=== PATIENT | male | born 1960 | race American Indian/Alaskan Native ===

== ENCOUNTER 2017-04-30 09:06 | Inpatient (IN) | payer MEDICARE ==
[2017-04-30] MEDS ORDERED: TORADOL IV ONE (10:00)
[2017-04-30 10:06] LABS: Hematocrit 34.3 % (35.5-45.6); Mean Corpuscular HGB Conc 32 % (32-34); Mean Corpuscular Hemoglobin 28 pg (28-32); Mean Corpuscular Volume 86 fl (84-94); Platelet Count 267 K/mm3 (140-440); Red Cell Distribution Width 17.3 % (13.2-15.2)
[2017-04-30 10:14] LABS: White Blood Count 20.5 K/mm3 (4.5-11.0)
[2017-04-30 10:21] LABS: Creatine Kinase MB 1.3 ng/mL (0.0-4.0)
[2017-04-30 10:21] LABS: INR 1.04 (0.87-1.13)
[2017-04-30 10:22] LABS: Alanine Aminotransferase 25 units/L (7-56); Albumin/Globulin Ratio 1.1 %; Alkaline Phosphatase 109 units/L (35-129); Anion Gap 19 mmol/L; BUN/Creatinine Ratio 10.71; Blood Urea Nitrogen 15 mg/dL (9-20); Calcium 9.1 mg/dL (8.4-10.2); Carbon Dioxide 23 mmol/L (22-30); Chloride 101.2 mmol/L (98-107); Glucose 120 mg/dL (75-100); Potassium 4.3 mmol/L (3.6-5.0); Sodium 139 mmol/L (137-145); Total Protein 7.5 g/dL (6.3-8.2)
--- NOTE | 2017-04-30 10:23 | XRay Report ---
CHEST ONE VIEW INDICATION: Dyspnea. COMPARISON: None similar at this institution. FINDINGS: Portable, single, frontal chest radiograph demonstrates normal cardiomediastinal silhouette. Clear lungs. Unremarkable bones. Extrinsic EKG leads. CONCLUSION: No acute disease in the chest. Thank you for the opportunity to participate in this patient's care.
[2017-04-30 11:18] LABS: Blastocytes % (Manual) 0 %
[2017-04-30 11:20] LABS: Basophils % (Manual) 0 % (0.0-1.8)
[2017-04-30 11:21] LABS: Anisocytosis 1+; Hypochromasia Few; Polychromasia Few
[2017-04-30 11:22] LABS: Diff Status Complete; Tear Drop Cells Rare
[2017-04-30] MEDS ORDERED: NACL ONE (11:33)
[2017-04-30 11:49] LABS: Urine Drugs of Abuse Note Disclamer
[2017-04-30 11:58] LABS: Bilirubin,Urine NEG (Negative); Blood,Urine NEG (Negative); Ketones,Urine NEG (Negative); Leukocyte Esterase,Urine NEG (Negative); Mucus,Urine FEW /HPF; Nitrite,Urine NEG (Negative); Protein,Urine <15 mg/dL mg/dL (Negative); Urobilinogen,Urine < 2.0 mg/dL (<2.0)
[2017-04-30] MEDS ORDERED: ZOFRAN IV ONE (12:11)
[2017-04-30] MEDS ORDERED: MORPHINE IV ONE (12:11)
[2017-04-30] MEDS ORDERED: NACL 0.9% 1000 ML 1,000 ML IV ONE (12:14)
--- NOTE | 2017-04-30 12:53 | Cat Scan Report ---
CTA CHEST INDICATION: Chest pain, shortness of breath. COMPARISON: None similar. FINDINGS: Chest CTA performed following intravenous administration of 100 cc of Omnipaque 350. Rotational MIP's also obtained. Normal heart size. Mild aortic arch calcifications. No aortic aneurysm or dissection. Suboptimal pulmonary arterial opacification and assessment without gross central suspicious filling defect, to the extent assessed. Patent central airway. No size significant adenopathy. Normal thyroid. Mild bilateral emphysematous changes superiorly. Nonspecific distal esophageal wall prominence/thickening, not excluded for gastroesophageal reflux and/or hiatal hernia, amongst others. Imaged upper abdomen demonstrates contracted gallbladder. Upper to mid thoracic vertebral body developmental/segmentation anomalies affecting up to approximately T6. Further inferior multilevel thoracic spine osteophytosis also seen. CONCLUSION: 1. Technically suboptimal CT assessment for pulmonary embolism, though without gross central abnormality, to the extent assessed, as described. 2. Other findings, including multilevel thoracic spine abnormalities, amongst others, as above. Thank you for the opportunity to participate in this patient's care.
--- NOTE | 2017-04-30 14:00 | Emergency Department Report ---
ED Shortness of Breath HPI - General Chief Complaint: Dyspnea/Respdistress Stated Complaint: BIENVENIDO Time Seen by Provider: 04/30/17 09:54 Source: EMS, old records reviewed (no previous record) Mode of arrival: Stretcher Limitations: No Limitations - History of Present Illness Initial Comments: 56-year-old male with a past medical history depression presents from [facility] with complaints of shortness of breath and chest pain. Patient was admitted to psychiatric Center on April 27 for major depressive disorder. Patient states his mother recently . Patient states he was admitted to [facility] for 11 days due to depression and he was transferred to [facility] when he has been for the last 2 days. Patient states his medications list provided by the psychiatric facility is incomplete and that he takes a lot more medication for his other medical conditions cholesterol, hypertension, and gout. He has not received his regular medication for the last 7 days. Patient was treated with Bactrim for recent urinary tract infection. EMS worker reports that bystanders on the scene thought that the patient had a seizure for about 2 minutes. Patient's complaint was "I am short of breath and everybody around here is sick and that he's been coughing up green mucus for the past 2 days. - Related Data Allergies Allergy/AdvReac Type Severity Reaction Status Date / Time chlorpromazine HCl Allergy Swelling Verified 04/30/17 09:27 [From Thorazine] ED Review of Systems ROS: Stated complaint: BIENVENIDO Other details as noted in HPI Comment: All other systems reviewed and negative Other: Constitutional: No fevers chills Eyes: No eye pain visual changes or discharge ENT: No ear pain or throat pain Neck: Denies pain Respiratory: As per HPI Cardiovascular: As per HPI GI: Denies abdominal pain, nausea, vomiting, diarrhea : Denies dysuria Musculoskeletal: Denies back pain Skin: Denies rash, lesions, erythema Neurologic: Denies headache, numbness, weakness Psychiatric: Denies suicidal ideation, hallucinations ED Past Medical Hx - Past Medical History Hx Psychiatric Treatment: Yes (depression) - Social History Smoking Status: Unknown if ever smoked ED Physical Exam - General Limitations: No Limitations - Other Other exam information: General: No limitations, patient is alert in no acute distress Head exam: Atraumatic, normocephalic Eyes exam: Normal appearance, pupils equal reactive to light, extraocular movements intact ENT: Moist mucous membrane, normal oropharynx Neck exam: Normal inspection, full range of motion, no meningismus nontender Respiratory exam: Clear to auscultation bilateral, no wheezes, rales, crackles Cardiovascular: Normal rate and rhythm, normal heart sounds. Reproducible lower left anterior chest wall tenderness Abdomen: Soft, nondistended, and nontender, with normal bowel sounds, no rebound, or guarding Extremity: Full range of motion normal inspection no deformity, no calf tenderness or edema Back: Normal Inspection, full range of motion, no tenderness Neurologic: Alert, oriented x3, cranial nerves intact, no motor or sensory deficit Psychiatric: normal affect, normal mood Skin: Warm, dry, intact ED Course Vital Signs 04/30/17 09:21 Temperature 98.5 F Pulse Rate 111 H Respiratory 18 Rate Blood Pressure 132/70 Blood Pressure 132/70 [Right] O2 Sat by Pulse 99 Oximetry - Reevaluation(s) Reevaluation #1: 04/30/17 14:04 Initially upon arrival and initial interview patient would only speak intermittently and he would impulsively pat people with his h ED Medical Decision Making - Lab Data Result diagrams: 04/30/17 09:54 04/30/17 09:54 Lab Results 04/30/17 04/30/17 04/30/17 Range/Units 09:54 09:54 09:57 WBC 20.5 H (4.5-11.0) K/mm3 RBC 4.00 (3.65-5.03) M/mm3 Hgb 11.0 L (11.8-15.2) gm/dl Hct 34.3 L (35.5-45.6) % MCV 86 (84-94) fl MCH 28 (28-32) pg MCHC 32 (32-34) % RDW 17.3 H (13.2-15.2) % Plt Count 267 (140-440) K/mm3 Add Manual Diff Complete Total Counted 100 Seg Neuts % (Manual) 79.0 H (40.0-70.0) % Band Neutrophils % 3.0 % Lymphocytes % (Manual) 5.0 L (13.4-35.0) % Reactive Lymphs % (Man) 0 % Monocytes % (Manual) 5.0 (0.0-7.3) % Eosinophils % (Manual) 1.0 (0.0-4.3) % Basophils % (Manual) 0 (0.0-1.8) % Metamyelocytes % 4.0 % Myelocytes % 3.0 % Promyelocytes % 0 % Blast Cells % 0 % Nucleated RBC % 1.0 H (0.0-0.9) % Seg Neutrophils # Man 16.2 H (1.8-7.7) K/mm3 Band Neutrophils # 0.6 K/mm3 Lymphocytes # (Manual) 1.0 L (1.2-5.4) K/mm3 Abs React Lymphs (Man) 0.0 K/mm3 Monocytes # (Manual) 1.0 H (0.0-0.8) K/mm3 Eosinophils # (Manual) 0.2 (0.0-0.4) K/mm3 Basophils # (Manual) 0.0 (0.0-0.1) K/mm3 Metamyelocytes # 0.8 K/mm3 Myelocytes # 0.6 K/mm3 Promyelocytes # 0.0 K/mm3 Blast Cells # 0.0 K/mm3 WBC Morphology Not Reportable Hypersegmented Neuts Not Reportable Hyposegmented Neuts Not Reportable Hypogranular Neuts Not Reportable Smudge Cells Not Reportable Toxic Granulation Not Reportable Toxic Vacuolation Not Reportable Dohle Bodies Not Reportable Pelger-Huet Anomaly Not Reportable Archana Rods Not Reportable Platelet Estimate Appears normal Clumped Platelets Not Reportable Plt Clumps, EDTA Not Reportable Large Platelets Not Reportable Giant Platelets Not Reportable Platelet Satelliting Not Reportable Plt Morphology Comment Not Reportable RBC Morphology Not Reportable Dimorphic RBCs Not Reportable Polychromasia Few Hypochromasia Few Poikilocytosis Not Reportable Anisocytosis 1+ Microcytosis Not Reportable Macrocytosis Not Reportable Spherocytes Not Reportable Pappenheimer Bodies Not Reportable Sickle Cells Not Reportable Target Cells Not Reportable Tear Drop Cells Rare Ovalocytes Not Reportable Helmet Cells Not Reportable Caceres-Rayville Bodies Not Reportable [place] Rings Not Reportable Pitman Cells Not Reportable Bite Cells Not Reportable Crenated Cell Not Reportable Elliptocytes Not Reportable Acanthocytes (Spur) Not Reportable Rouleaux Not Reportable Hemoglobin C Crystals Not Reportable Schistocytes Not Reportable Malaria parasites Not Reportable [place]roy Bodies Not Reportable Hem Pathologist Commnt Sent to pathology PT 13.5 (12.2-14.9) Sec. INR 1.04 (0.87-1.13) D-Dimer 492.71 H (0-234) ng/mlDDU VBG pH (7.320-7.420) Sodium 139 (137-145) mmol/L Potassium 4.3 (3.6-5.0) mmol/L Chloride 101.2 (98-107) mmol/L Carbon Dioxide 23 (22-30) mmol/L Anion Gap 19 mmol/L BUN 15 (9-20) mg/dL Creatinine 1.4 (0.8-1.5) mg/dL Estimated GFR > 60 ml/min BUN/Creatinine Ratio 10.71 % Glucose 120 H (75-100) mg/dL Lactic Acid (0.7-2.0) mmol/L Calcium 9.1 (8.4-10.2) mg/dL Total Bilirubin 0.20 (0.1-1.2) mg/dL AST 20 (5-40) units/L ALT 25 (7-56) units/L Alkaline Phosphatase 109 (35-129) units/L Total Creatine Kinase (55-170) units/L CK-MB (CK-2) (0.0-4.0) ng/mL CK-MB (CK-2) Rel Index (0-4) Troponin T (0.00-0.029) ng/mL NT-Pro-B Natriuret Pep (0-900) pg/mL Total Protein 7.5 (6.3-8.2) g/dL Albumin 4.0 (3.9-5) g/dL Albumin/Globulin Ratio 1.1 % Urine Color (Yellow) Urine Turbidity (Clear) Urine pH (5.0-7.0) Ur Specific [place] (1.003-1.030) Urine Protein (Negative) mg/dL Urine Glucose (UA) (Negative) mg/dL Urine Ketones (Negative) mg/dL Urine Blood (Negative) Urine Nitrite (Negative) Urine Bilirubin (Negative) Urine Urobilinogen (<2.0) mg/dL Ur Leukocyte Esterase (Negative) Urine WBC (Auto) (0.0-6.0) /HPF Urine RBC (Auto) (0.0-6.0) /HPF Urine Mucus /HPF Urine Opiates Screen Urine Methadone Screen Ur Barbiturates Screen Ur Phencyclidine Scrn Ur Amphetamines Screen U Benzodiazepines Scrn Urine Cocaine Screen U Marijuana (THC) Screen Drugs of Abuse Note 04/30/17 04/30/17 04/30/17 Range/Units 10:01 10:01 11:41 WBC (4.5-11.0) K/mm3 RBC (3.65-5.03) M/mm3 Hgb (11.8-15.2) gm/dl Hct (35.5-45.6) % MCV (84-94) fl MCH (28-32) pg MCHC (32-34) % RDW (13.2-15.2) % Plt Count (140-440) K/mm3 Add Manual Diff Total Counted Seg Neuts % (Manual) (40.0-70.0) % Band Neutrophils % % Lymphocytes % (Manual) (13.4-35.0) % Reactive Lymphs % (Man) % Monocytes % (Manual) (0.0-7.3) % Eosinophils % (Manual) (0.0-4.3) % Basophils % (Manual) (0.0-1.8) % Metamyelocytes % % Myelocytes % % Promyelocytes % % Blast Cells % % Nucleated RBC % (0.0-0.9) % Seg Neutrophils # Man (1.8-7.7) K/mm3 Band Neutrophils # K/mm3 Lymphocytes # (Manual) (1.2-5.4) K/mm3 Abs React Lymphs (Man) K/mm3 Monocytes # (Manual) (0.0-0.8) K/mm3 Eosinophils # (Manual) (0.0-0.4) K/mm3 Basophils # (Manual) (0.0-0.1) K/mm3 Metamyelocytes # K/mm3 Myelocytes # K/mm3 Promyelocytes # K/mm3 Blast Cells # K/mm3 WBC Morphology Hypersegmented Neuts Hyposegmented Neuts Hypogranular Neuts Smudge Cells Toxic Granulation Toxic Vacuolation Dohle Bodies Pelger-Huet Anomaly Archana Rods Platelet Estimate Clumped Platelets Plt Clumps, EDTA Large Platelets Giant Platelets Platelet Satelliting Plt Morphology Comment RBC Morphology Dimorphic RBCs Polychromasia Hypochromasia Poikilocytosis Anisocytosis Microcytosis Macrocytosis Spherocytes Pappenheimer Bodies Sickle Cells Target Cells Tear Drop Cells Ovalocytes Helmet Cells Caceres-[place] Bodies [place] Rings Pitman Cells Bite Cells Crenated Cell Elliptocytes Acanthocytes (Spur) Rouleaux Hemoglobin C Crystals Schistocytes Malaria parasites Elroy Bodies Hem Pathologist Commnt PT (12.2-14.9) Sec. INR (0.87-1.13) D-Dimer (0-234) ng/mlDDU VBG pH (7.320-7.420) Sodium (137-145) mmol/L Potassium (3.6-5.0) mmol/L Chloride (98-107) mmol/L Carbon Dioxide (22-30) mmol/L Anion Gap mmol/L BUN (9-20) mg/dL Creatinine (0.8-1.5) mg/dL Estimated GFR ml/min BUN/Creatinine Ratio % Glucose (75-100) mg/dL Lactic Acid (0.7-2.0) mmol/L Calcium (8.4-10.2) mg/dL Total Bilirubin (0.1-1.2) mg/dL AST (5-40) units/L ALT (7-56) units/L Alkaline Phosphatase (35-129) units/L Total Creatine Kinase 93 (55-170) units/L CK-MB (CK-2) 1.3 (0.0-4.0) ng/mL CK-MB (CK-2) Rel Index 1.3 (0-4) Troponin T < 0.010 (0.00-0.029) ng/mL NT-Pro-B Natriuret Pep 113.5 (0-900) pg/mL Total Protein (6.3-8.2) g/dL Albumin (3.9-5) g/dL Albumin/Globulin Ratio % Urine Color Yellow (Yellow) Urine Turbidity Clear (Clear) Urine pH 5.0 (5.0-7.0) Ur Specific [place] 1.013 (1.003-1.030) Urine Protein <15 mg/dl (Negative) mg/dL Urine Glucose (UA) Neg (Negative) mg/dL Urine Ketones Neg (Negative) mg/dL Urine Blood Neg (Negative) Urine Nitrite Neg (Negative) Urine Bilirubin Neg (Negative) Urine Urobilinogen < 2.0 (<2.0) mg/dL Ur Leukocyte Esterase Neg (Negative) Urine WBC (Auto) 2.0 (0.0-6.0) /HPF Urine RBC (Auto) 2.0 (0.0-6.0) /HPF Urine Mucus Few /HPF Urine Opiates Screen Urine Methadone Screen Ur Barbiturates Screen Ur Phencyclidine Scrn Ur Amphetamines Screen U Benzodiazepines Scrn Urine Cocaine Screen U Marijuana (THC) Screen Drugs of Abuse Note 04/30/17 04/30/17 04/30/17 Range/Units 11:41 12:39 12:39 WBC (4.5-11.0) K/mm3 RBC (3.65-5.03) M/mm3 Hgb (11.8-15.2) gm/dl Hct (35.5-45.6) % MCV (84-94) fl MCH (28-32) pg MCHC (32-34) % RDW (13.2-15.2) % Plt Count (140-440) K/mm3 Add Manual Diff Total Counted Seg Neuts % (Manual) (40.0-70.0) % Band Neutrophils % % Lymphocytes % (Manual) (13.4-35.0) % Reactive Lymphs % (Man) % Monocytes % (Manual) (0.0-7.3) % Eosinophils % (Manual) (0.0-4.3) % Basophils % (Manual) (0.0-1.8) % Metamyelocytes % % Myelocytes % % Promyelocytes % % Blast Cells % % Nucleated RBC % (0.0-0.9) % Seg Neutrophils # Man (1.8-7.7) K/mm3 Band Neutrophils # K/mm3 Lymphocytes # (Manual) (1.2-5.4) K/mm3 Abs React Lymphs (Man) K/mm3 Monocytes # (Manual) (0.0-0.8) K/mm3 Eosinophils # (Manual) (0.0-0.4) K/mm3 Basophils # (Manual) (0.0-0.1) K/mm3 Metamyelocytes # K/mm3 Myelocytes # K/mm3 Promyelocytes # K/mm3 Blast Cells # K/mm3 WBC Morphology Hypersegmented Neuts Hyposegmented Neuts Hypogranular Neuts Smudge Cells Toxic Granulation Toxic Vacuolation Dohle Bodies Pelger-Huet Anomaly Archana Rods Platelet Estimate Clumped Platelets Plt Clumps, EDTA Large Platelets Giant Platelets Platelet Satelliting Plt Morphology Comment RBC Morphology Dimorphic RBCs Polychromasia Hypochromasia Poikilocytosis Anisocytosis Microcytosis Macrocytosis Spherocytes Pappenheimer Bodies Sickle Cells Target Cells Tear Drop Cells Ovalocytes Helmet Cells Caceres-[place] Bodies [place] Rings Bertram Cells Bite Cells Crenated Cell Elliptocytes Acanthocytes (Spur) Rouleaux Hemoglobin C Crystals Schistocytes Malaria parasites Elroy Bodies Hem Pathologist Commnt PT (12.2-14.9) Sec. INR (0.87-1.13) D-Dimer (0-234) ng/mlDDU VBG pH 7.388 (7.320-7.420) Sodium (137-145) mmol/L Potassium (3.6-5.0) mmol/L Chloride (98-107) mmol/L Carbon Dioxide (22-30) mmol/L Anion Gap mmol/L BUN (9-20) mg/dL Creatinine (0.8-1.5) mg/dL Estimated GFR ml/min BUN/Creatinine Ratio % Glucose (75-100) mg/dL Lactic Acid 1.30 (0.7-2.0) mmol/L Calcium (8.4-10.2) mg/dL Total Bilirubin (0.1-1.2) mg/dL AST (5-40) units/L ALT (7-56) units/L Alkaline Phosphatase (35-129) units/L Total Creatine Kinase (55-170) units/L CK-MB (CK-2) (0.0-4.0) ng/mL CK-MB (CK-2) Rel Index (0-4) Troponin T (0.00-0.029) ng/mL NT-Pro-B Natriuret Pep (0-900) pg/mL Total Protein (6.3-8.2) g/dL Albumin (3.9-5) g/dL Albumin/Globulin Ratio % Urine Color (Yellow) Urine Turbidity (Clear) Urine pH (5.0-7.0) Ur Specific [place] (1.003-1.030) Urine Protein (Negative) mg/dL Urine Glucose (UA) (Negative) mg/dL Urine Ketones (Negative) mg/dL Urine Blood (Negative) Urine Nitrite (Negative) Urine Bilirubin (Negative) Urine Urobilinogen (<2.0) mg/dL Ur Leukocyte Esterase (Negative) Urine WBC (Auto) (0.0-6.0) /HPF Urine RBC (Auto) (0.0-6.0) /HPF Urine Mucus /HPF Urine Opiates Screen Presumptive negative Urine Methadone Screen Presumptive negative Ur Barbiturates Screen Presumptive negative Ur Phencyclidine Scrn Presumptive negative Ur Amphetamines Screen Presumptive negative U Benzodiazepines Scrn Presumptive negative Urine Cocaine Screen Presumptive negative U Marijuana (THC) Screen Presumptive negative Drugs of Abuse Note Disclamer - EKG Data -: EKG Interpreted by Me (nsr [id number], lat t wav inv) - EKG Data When compared to previous EKG there are: previous EKG unavailable - Radiology Data Radiology results: report reviewed Chest x-ray: No acute findings CT angiogram chest: Suboptimal, no gross sensory abnormality. Multi-level thoracic spine abnormalities. Mild bilateral emphysematous changes superiorly. Nonspecific distal esophageal wall prominence/thickening not excluded for GERD or hiatal hernia mild aortic arch calcifications no dissection or aneurysm - Medical Decision Making I decided to patient's pain is musculoskeletal. CT angiogram does not reveal a central PE. No signs of HI at this time. Patient has a significant leukocytosis with unknown origin. Blood cultures pending. Possible seizure prior to admission with no known history. Patient to be admitted to the hospitalist for further management - Differential Diagnosis mi, pe, costochondritis, pneumonia, bronchitis, new onset seizure Critical Care Time: No Critical care attestation.: If time is entered above; I have spent that time in minutes in the direct care of this critically ill patient, excluding procedure time. ED Disposition Clinical Impression: SOB (shortness of breath), Chest wall pain, Leukocytosis, Depression Disposition: OP ADMIT IP TO THIS HOSP Is pt being admited?: Yes Condition: Stable Time of Disposition: 14:27
--- NOTE | 2017-04-30 14:08 | Cat Scan Report ---
CT HEAD WITHOUT CONTRAST INDICATION: Seizure. COMPARISON: None similar. FINDINGS: Noncontrast head CT demonstrates normal ventricles and sulci without acute or recent infarct, hemorrhage, mass effect or midline shift. Mild to moderate periventricular and white matter hypodense small vessel ischemic disease. No abnormal extra-axial fluid collections. Posterior fossa structures and basilar cisterns appear within normal limits. Slightly hyperdense tentorium. Subtle MCA branch hyperdense appearance as well, more so on the right on axial series 2, images 22-31, nonspecific. Symmetric eye globes. Nasal septal deviation. Moderate ethmoid and mild maxillary and sphenoid sinusitis bilaterally. Clear imaged paranasal sinuses and mastoid air cells. Right external auditory canal debris may be directly visualized. Mild atherosclerotic ICA calcifications. Clear paranasal sinuses and mastoid air cells. Intact calvarium. Normal overlying scalp soft tissues. Few missing teeth. CONCLUSION: Findings, as above. If focal neurologic deficits or strong clinical suspicion for an acute infarction exist, additional assessment as with MRI may be considered, as appropriate. I phoned the above results to Dr. Nugent in the ER, 1:55 PM, 04/30/2017. Thank you for the opportunity to participate in this patient's care.
--- NOTE | 2017-04-30 14:18 | History and Physical Report ---
History of Present Illness Chief complaint: I have pain in my chest and its hard to breathe History of present illness: 56 YO Male with HTN, Depression, HLD, Gout presents to ED for evaluation. Pt states that he has experienced pain in his chest and shortness of breath for the past 2 days with worsening symptoms over the past 1 day. Pt currently is an inpatient at [facility] and states that he has not received his home medication for the past 7 days. Pt is unable to provide further detailed history, but history is taken from ED staff, EMS, and [facility] staff. Pt denies fever, chills, CP, Palpitations, NVD, productive cough, recent ill contacts. Past History Past Medical History: hypertension, hyperlipidemia Past Surgical History: No surgical history, Other (reviewed) Social history: single. denies: smoking, alcohol abuse, prescription drug abuse Family history: diabetes, hypertension Medications and Allergies Allergies Allergy/AdvReac Type Severity Reaction Status Date / Time chlorpromazine HCl Allergy Swelling Verified 04/30/17 09:27 [From Thorazine] Home Medications Medication Instructions Recorded Confirmed Last Taken Type AtorvaSTATin [Lipitor] 40 mg PO BID 04/30/17 04/30/17 Unknown History Carvedilol [Coreg] 25 mg PO BID 04/30/17 04/30/17 Unknown History Colchicine [Colcrys] 0.6 mg PO BID 04/30/17 04/30/17 Unknown History Tamsulosin [Flomax] 0.4 mg PO QDAY 04/30/17 04/30/17 Unknown History amLODIPine [Norvasc] 10 mg PO DAILY 04/30/17 04/30/17 Unknown History methOCARBAMOL [Robaxin TAB] 500 mg PO BID 04/30/17 04/30/17 Unknown History Review of Systems ROS unobtainable: due to mental status Exam - Constitutional Vitals: Temp Pulse Resp BP Pulse Ox 98.5 F 111 H 18 132/70 99 04/30/17 09:21 04/30/17 09:21 04/30/17 09:21 04/30/17 09:21 04/30/17 09:21 General appearance: Present: mild distress - EENT Eyes: Present: PERRL ENT: hearing intact, clear oral mucosa - Neck Neck: Present: supple, normal ROM - Respiratory Respiratory effort: normal Respiratory: bilateral: CTA - Cardiovascular Heart Sounds: Present: S1 & S2. Absent: rub, click - Extremities Extremities: pulses symmetrical, No edema Peripheral Pulses: within normal limits - Abdominal General gastrointestinal: Present: soft, non-tender, non-distended, normal bowel sounds Male genitourinary: Present: normal - Integumentary Integumentary: Present: clear, warm, dry - Musculoskeletal Musculoskeletal: gait normal, strength equal bilaterally - Psychiatric Psychiatric: appropriate mood/affect, intact judgment & insight - Neurologic Neurologic: CNII-XII intact, moves all extremities Results - Labs CBC & Chem 7: 04/30/17 14:56 04/30/17 14:56 Labs: Abnormal lab results 04/30/17 04/30/17 04/30/17 Range/Units 09:54 09:54 09:57 WBC 20.5 H (4.5-11.0) K/mm3 Hgb 11.0 L (11.8-15.2) gm/dl Hct 34.3 L (35.5-45.6) % RDW 17.3 H (13.2-15.2) % Seg Neuts % (Manual) 79.0 H (40.0-70.0) % Lymphocytes % (Manual) 5.0 L (13.4-35.0) % Nucleated RBC % 1.0 H (0.0-0.9) % Seg Neutrophils # Man 16.2 H (1.8-7.7) K/mm3 Lymphocytes # (Manual) 1.0 L (1.2-5.4) K/mm3 Monocytes # (Manual) 1.0 H (0.0-0.8) K/mm3 D-Dimer 492.71 H (0-234) ng/mlDDU Glucose 120 H (75-100) mg/dL Assessment and Plan - Patient Problems (1) Sepsis Current Visit: Yes Status: Acute Qualifiers: Sepsis type: S Plan to address problem: IV abx, IVF, supportive care, serial lactate level, repeat bmp, monitor uop q shift, blood cultures. (2) ACS (acute coronary syndrome) Current Visit: Yes Status: Acute Plan to address problem: Cardiology consulted, Serial cardiac enzymes, ekg, telemetry monitoring, supportive care, Echo, stress test (3) HTN (hypertension) Current Visit: Yes Status: Acute Qualifiers: Hypertension type: H Plan to address problem: Monitor bp q shift (4) Depression Current Visit: Yes Status: Acute Qualifiers: Depression Type: D Major depression recurrence: M Active/Remission status : A Major depression episode severity: M Psychotic features: P Trimester: T Plan to address problem: psych consulted, resume current therapy. (5) DVT prophylaxis Current Visit: Yes Status: Acute
[2017-04-30] MEDS ORDERED: MILK OF MAGNESIA PO PRN (14:22)
[2017-04-30] MEDS ORDERED: NACL 0.9% 1000 ML IV ONE (14:22)
[2017-04-30] MEDS ORDERED: ZOFRAN IV PRN (14:22)
[2017-04-30] MEDS ORDERED: TYLENOL PO PRN (14:22)
[2017-04-30] MEDS ORDERED: DULCOLAX PR PRN (14:22)
[2017-04-30] MEDS ORDERED: PROVENTIL IH PRN (14:22)
[2017-04-30] MEDS ORDERED: SODIUM CHLORIDE FLUSH SYRINGE 10 ML IV PRN (14:27)
--- NOTE | 2017-04-30 14:41 | Admit Criteria Form ---
Admission Criteria Documentation: SEPSIS and OTHER FEBRILE ILLNESS, W/O FOCAL INFECTION Clinical Indications for Admission to Inpatient Care ( Place 'X' for any and all applicable criteria): Admission is indicated for ANY ONE of the following (1)(2)(3)(4): [X] I. Bacteremia [ ]II. Suspected or identified specific infection requiring hospitalization (eg, meningitis, endocarditis) [ ]III. Hemodynamic instability [ ]IV. Altered mental status [ ]V. Failure or unavailability of outpatient antimicrobial treatment [ ]. Hypoxemia [ ]VII. Seizures [ ]VIII. High-risk febrile neutropenia [ ]IX. Need for parenteral antibiotic in patient who is likely to abuse vascular access device (eg, injection drug user) [A](7) [ ]X. Temperature greater than 104.9 degrees F (40.5 degrees C) (oral) [ ]XI. Inpatient admission required rather than observation care because of ANY ONE of the following: [ ]1) Specific infection identified that is too severe for outpatient treatment or observation care trial [ ]2) Metabolic disorder (eg, hypoglycemia, hyperglycemia, metabolic acidosis) that is severe or persistent [ ]3) Temperature greater than 103.1 degrees F (39.5 degrees C) ( oral) that is not responsive to observation care treatment [ ]4) IV fluid to replace significant ongoing (eg, for over 24 hours) losses (> 3 L/m2 per day) [ ]5) Supplemental oxygen or respiratory treatments for over 24 hours that is performable only in acute inpatient setting [ ]6) Parenteral nutrition regimen need that must be implemented on inpatient basis [ ]7) Strict or protective (eg, laminar flow) isolation [ ]8) Other condition, treatment or monitoring requiring inpatient admission Extended stay beyond goal length of stay may be needed for(1)(3) [ ]a) Sepsis or septic shock(22) [ ]b) Positive blood cultures [ ]c) Insufficient oral intake [ ]d) High-risk febrile neutropenia(29)(30) [ ]e) Continued fever and clinical instability [ ]f) Clinically active comorbid illness (e.g,heart failure, renal failure , diabetes) The original [facility] [employer] content created by Deborah Leon has been revised. The portions of the content which have been revised are identified through the use of italic text or in bold, and Deborah Leon has neither reviewed nor approved the modified material. All other unmodified content is copyright [facility]. Please see references footnoted in the original [facility] edition 2016 Admission Criteria Met: Yes
[2017-04-30 15:15] LABS: Hematocrit 34.4 % (35.5-45.6); Hemoglobin 10.9 gm/dl (11.8-15.2); Mean Corpuscular HGB Conc 32 % (32-34); Mean Corpuscular Hemoglobin 27 pg (28-32); Mean Corpuscular Volume 86 fl (84-94); Platelet Count 280 K/mm3 (140-440); Red Blood Count 3.99 M/mm3 (3.65-5.03); Red Cell Distribution Width 17.5 % (13.2-15.2); White Blood Count 19.9 K/mm3 (4.5-11.0)
[2017-04-30 15:34] LABS: Eosinophils % (Auto) 1.4 % (0.0-4.3)
[2017-04-30 15:35] LABS: Anion Gap 21 mmol/L; BUN/Creatinine Ratio 12.14; Blood Urea Nitrogen 17 mg/dL (9-20); Calcium 8.9 mg/dL (8.4-10.2); Carbon Dioxide 21 mmol/L (22-30); Chloride 101.3 mmol/L (98-107); Cholesterol 185 mg/dL (50-199); Glucose 92 mg/dL (75-100); HDL Cholesterol 15 mg/dL (40-59); LDL Cholesterol,Direct TNR mg/dL (50-130); Potassium 4.2 mmol/L (3.6-5.0); Sodium 139 mmol/L (137-145); Triglycerides 565 mg/dL (2-149)
[2017-04-30 17:14] LABS: Blastocytes % (Manual) 0 %
[2017-04-30 17:15] LABS: Anisocytosis 1+
[2017-04-30 17:16] LABS: Platelet Estimate Consistent w Auto; Polychromasia Few; Tear Drop Cells Few
[2017-04-30 17:17] LABS: Diff Status Complete
[2017-04-30] MEDS: NACL 0.45% 1000 ML 1,000 ML IV SCH (17:54)
[2017-04-30] MEDS: PEPCID PO SCH (21:24)
[2017-04-30] MEDS ORDERED: ROBITUSSIN PO PRN (22:57)
[2017-04-30] MEDS ORDERED: MORPHINE IV PRN (22:58)
[2017-04-30] MEDS: COLCRYS PO SCH (23:32)
[2017-05-01] MEDS: NACL 0.45% 1000 ML 1,000 ML IV SCH (03:00)
[2017-05-01 08:06] VITALS: BP 167/72
[2017-05-01] MEDS: PEPCID PO SCH (10:44)
[2017-05-01] MEDS: COLCRYS PO SCH (10:44)
--- NOTE | 2017-05-01 11:01 | Discharge Summary ---
Providers - Providers Date of Admission: 04/30/17 14:22 Attending physician: ADAM SHANKAR 04/30/17 14:27 Consult to Cardiology [CONS] Routine Consulting Provider: BRIAN HERR Reason For Exam: acs 04/30/17 16:34 psychiatry consult [Consult to Mental Health] [CONS] Routine Reason For Exam: depression Place consult to:: psych Notified:: ANMOL Phone number called:: [phone] Was contact made?: Yes If yes, spoke with:: ANMOL Time called:: 17:11 Primary care physician: MEDICAL IMAGING TECHNICIAN Hospitalization Condition: Stable Hospital course: Patient admitted for cp, sob and left AMA. Patient was counseled and educated prior to leaving AMA. Patient still refuses all test and left AMA. He denies any suicidal or homicidal ideations. Discharge diagnosis: -Chest pain, most likely GERD related, please see CTA chest report, (read entire report) 05/01/17 10:37 - Nurse Note by LUCI ARANGO Acct Num: [id number] : 1960 Patient Age: 56 Patient Left ON AMA Refused Electrocardiogram,stress test and schedule medication Removed teletypesetter monitor hospital security called they responded patient still Refused to stay DR Shankar Notified states okay if patient signs AMA Form INT removed dry dressing applied charged nurse aware patient left at 1035. Initialized on 05/01/17 10:37 - END OF NOTE Disposition: DC-07 LEFT AGAINST MED ADVICE Time spent for discharge: 33 min Core Measure Documentation - Palliative Care Palliative Care/ Comfort Measures: Not Applicable - Core Measures Any of the following diagnoses?: none - VTE Discharge Requirements Deep Vein Thrombosis/Pulmonary Embolism Present on Admission: No Has pt received <5 days of overlap therapy or INR<2.0: No Anticoagulant overlap therapy prescribed at discharge: No Contraindication No Overlap Therapy order at DC: Not Indicated Exam - Physical Exam Narrative exam: GEN: WDWN, NAD, AWAKE, ALERT, ORIENTATED x 3 HEENT: NCAT, PERRL, EOMI, OP CLEAR NECK: SUPPLE, NO THYROMEGALY, NO JVD, NO LAD CVS: RRR, NORMAL S1S2 LUNGS/CHEST: CTA B, NORMAL CHEST EXPANSION B, adequate AIR ENTRY B ABD: SOFT, NTND, GBS, NO REBOUND OR GUARDING EXT/SKIN: NO SIGNIFICANT EDEMA OR RASH MSK: FROM X 4 EXTREMITIES NEURO: CN 2-12 GROSSLY INTACT, NO FOCAL DEFICITS PSY: Poor insight and judgment - Constitutional Vitals: Temp Pulse Resp BP Pulse Ox 97.9 F 69 20 167/72 98 05/01/17 07:45 05/01/17 07:45 05/01/17 07:45 05/01/17 07:45 05/01/17 07:45 Plan Activity: no driving until cleared by PCP, other (no strenous activites until cleared by PCP. ) Diet: low salt Follow up with: PRIMARY CARE, [Primary Care Provider] - 3-5 Days
--- NOTE | 2017-05-06 10:50 | Query- Present on Admission ---
Marquis Bueno___Raad Date:____05/06/2017 Swimming Pool Salesperson/CDS:__Gavino Phone#:___[phone] Exercise your independent professional judgment when responding to this query. Questions asked do not imply a particular answer is desired or expected. We greatly appreciate your clarification on this issue. Clinical Documentation States: 56 Year old male was admitted on 04/30/2017. The Discharge summary states "I wanted to keep patient but he doesn't want to stay. Leukocytosis and HR qualifies for SIRS without source of infection, poa, d /w patient prior to leaving AMA that he needs to be worked up, pt states, "this is the worse hospital ever, I ain't staying here." Blood cultures pending." The IM H&P note states "Assessment and Plan - Patient Problems (1) Sepsis Current Visit: Yes Status: Acute Qualifiers: Sepsis type: S Plan to address problem: IV abx, IVF, supportive care, serial lactate level, repeat bmp, monitor uop q shift, blood cultures. Based on the above clinical scenario and your knowledge of the patient's case please clarify if the diagnosis stated below was present on admission: Diagnosis: ___Sepsis [ ] Sepsis Ruled In [ ] Sepsis Ruled Out [x ] Other (Please Specify):___He did have SIRS not sepsis [x ] Clinically Undetermined because he left AMA Present on admission : [ ] Yes (Y) [x] Clinically undeterminable(W) [ ] No (N) Please also document response in your Progress Notes and/or Discharge Summary and indicate if the condition was present on admission. JAVIER
== END 2017-05-01 10:40 | disposition left against medical advice (07) | DRG 311 ==
LOC: ED 09:06 → 3A 14:22
PROVIDERS: ADMIT Internal Medicine; ATTEND Internal Medicine
DX: I24.9 Acute ischemic heart disease, unspecified (principal); R65.10 Systemic inflammatory response syndrome (SIRS) of non-infectious origin without acute organ dysfunction; F32.9 Major depressive disorder, single episode, unspecified; I10 Essential (primary) hypertension; K21.9 Gastro-esophageal reflux disease without esophagitis; M10.9 Gout, unspecified; D72.829 Elevated white blood cell count, unspecified; E78.5 Hyperlipidemia, unspecified; Z87.440 Personal history of urinary (tract) infections; Z82.49 Family history of ischemic heart disease and other diseases of the circulatory system; Z83.3 Family history of diabetes mellitus
CPT/HCPCS: 36415; 70450; 71010; 71020; 71275; 80048; 80053; 80061; 80307; 81001; 82140; 82550; 82553; 82805; 83880; 84484; 85007; 85025; 85379; 85610; 86850; 86900; 86901; 87040; 93005; 93010; 96374; 96375; 99285; J1885; J2270; J2405; J7030; Q9967

== ENCOUNTER 2017-05-06 19:28 | Emergency (ER) | payer MEDICARE ==
[2017-05-06 21:20] VITALS: BP 173/89
--- NOTE | 2017-05-06 23:47 | Emergency Department Report ---
ED Medical Clearance HPI - General Chief complaint: Extremity Injury, Lower Stated complaint: WEAKNESS Source: patient, EMS Mode of arrival: Ambulatory Limitations: No Limitations - History of Present Illness Initial comments: 56 year old male presents to ED with no complaint. patient states he was sent here by the [facility] term for medical clearance. patient states the nurse sent him to the ED because he was sleep and then woke up and states his foot fell asleep and he tripped but did not fall. patient is stable, neurologically intact and in no acute distress. patient denies pain. patient has normal gait, normal strength in all 4 extremeties and intact bilateral radial pulses and intact bilateral pedal pulses. patient is alert and oriented to person, place, time and self. patient also states that he walked here to the ED from the long term. MD Complaint: medical clearance request -: Sudden Reason for Medical Clearance: other (sent from long term) Alledged Intoxication: No Traumatic Symptoms: denies traumatic injury Associated Symptoms: denies other symptoms. denies: chest pain, shortness of breath, palpitations, diaphoresis, confusion, cough, fever/chills, headaches, anorexia, malaise, nausea/vomiting, rash, seizure, syncope, weakness Treatments Prior to Arrival: none Home medications: Home Medications Medication Instructions Recorded Confirmed Last Taken AtorvaSTATin [Lipitor] 40 mg PO BID 04/30/17 04/30/17 Unknown Carvedilol [Coreg] 25 mg PO BID 04/30/17 04/30/17 Unknown Colchicine [Colcrys] 0.6 mg PO BID 04/30/17 04/30/17 Unknown Tamsulosin [Flomax] 0.4 mg PO QDAY 04/30/17 04/30/17 Unknown amLODIPine [Norvasc] 10 mg PO DAILY 04/30/17 04/30/17 Unknown methOCARBAMOL [Robaxin TAB] 500 mg PO BID 04/30/17 04/30/17 Unknown Allergies/Adverse reactions: Allergies Allergy/AdvReac Type Severity Reaction Status Date / Time chlorpromazine HCl Allergy Swelling Verified 04/30/17 09:27 [From Thorazine] ED Review of Systems ROS: Stated complaint: WEAKNESS Other details as noted in HPI Constitutional: denies: chills, diaphoresis, fever, malaise, weakness Eyes: denies: eye pain, eye discharge, vision change ENT: denies: ear pain, throat pain Respiratory: denies: cough, shortness of breath, wheezing Cardiovascular: denies: chest pain, palpitations Endocrine: no symptoms reported Gastrointestinal: denies: abdominal pain, nausea, diarrhea Genitourinary: denies: urgency, dysuria Musculoskeletal: denies: back pain, joint swelling, arthralgia Skin: denies: rash, lesions Neurological: denies: headache, weakness, numbness, paresthesias, confusion, abnormal gait, vertigo Psychiatric: denies: anxiety, depression, suicidal thoughts Hematological/Lymphatic: denies: easy bleeding, easy bruising ED Past Medical Hx - Past Medical History Previous Medical History?: Yes Hx Hypertension: Yes Hx Congestive Heart Failure: No Hx Diabetes: No Hx Psychiatric Treatment: Yes (depression) Hx Asthma: No Hx COPD: No - Surgical History Past Surgical History?: No - Social History Smoking Status: Current Every Day Smoker Substance Use Type: None - Medications Home Medications: Home Medications Medication Instructions Recorded Confirmed Last Taken Type AtorvaSTATin [Lipitor] 40 mg PO BID 04/30/17 04/30/17 Unknown History Carvedilol [Coreg] 25 mg PO BID 04/30/17 04/30/17 Unknown History Colchicine [Colcrys] 0.6 mg PO BID 04/30/17 04/30/17 Unknown History Tamsulosin [Flomax] 0.4 mg PO QDAY 04/30/17 04/30/17 Unknown History amLODIPine [Norvasc] 10 mg PO DAILY 04/30/17 04/30/17 Unknown History methOCARBAMOL [Robaxin TAB] 500 mg PO BID 04/30/17 04/30/17 Unknown History ED Physical Exam - General Limitations: No Limitations General appearance: alert, in no apparent distress - Head Head exam: Present: atraumatic, normocephalic - Eye Eye exam: Present: normal appearance, EOMI - ENT ENT exam: Present: mucous membranes moist - Neck Neck exam: Present: normal inspection, full ROM. Absent: tenderness - Respiratory Respiratory exam: Present: normal lung sounds bilaterally. Absent: respiratory distress, wheezes, chest wall tenderness, decreased breath sounds - Cardiovascular Cardiovascular Exam: Present: regular rate, normal rhythm, normal heart sounds. Absent: systolic murmur, diastolic murmur, rubs, gallop - GI/Abdominal GI/Abdominal exam: Present: soft, normal bowel sounds. Absent: distended, tenderness - Rectal Rectal exam: Present: deferred - Extremities Exam Extremities exam: Present: normal inspection, full ROM. Absent: tenderness - Back Exam Back exam: Present: normal inspection, full ROM. Absent: tenderness - Neurological Exam Neurological exam: Present: alert, oriented X3, normal gait, reflexes normal. Absent: altered, abnormal gait - Psychiatric Psychiatric exam: Present: normal affect, normal mood. Absent: depressed, suicidal ideation - Skin Skin exam: Present: warm, dry, intact, normal color. Absent: rash ED Course Vital Signs 05/06/17 21:15 Temperature 98.3 F Pulse Rate 89 Respiratory 18 Rate Blood Pressure 173/89 O2 Sat by Pulse 98 Oximetry ED Medical Decision Making - Medical Decision Making 56 year old male presents to ED for medical clearance. patient was sent to ED by long term for waking up and tripping over his own feet but no actual fall. patient denies LOC, trauma to head, pain, weakness. patient is stable, neurologically intact and in no acute distress. patient has normal physical exam with no acute findings. ED Disposition Clinical Impression: General medical exam Disposition: DC-01 TO HOME OR SELFCARE Is pt being admited?: No Does the pt Need Aspirin: No Condition: Stable Referrals: PRIMARY CARE, [Primary Care Provider] - 3-5 Days
== END 2017-05-06 23:55 | disposition home or self-care (01) ==
LOC: ED 19:28
DX: Z00.8 Encounter for other general examination (principal); I10 Essential (primary) hypertension; F32.9 Major depressive disorder, single episode, unspecified; F17.200 Nicotine dependence, unspecified, uncomplicated; Z88.8 Allergy status to other drugs, medicaments and biological substances
CPT/HCPCS: 99283

== ENCOUNTER 2017-09-04 15:00 | Inpatient (IN) | payer MEDICARE ==
[2017-09-04 17:10] LABS: Hematocrit 31.7 % (35.5-45.6); Hemoglobin 10.2 gm/dl (11.8-15.2); Mean Corpuscular HGB Conc 32 % (32-34); Mean Corpuscular Hemoglobin 27 pg (28-32); Mean Corpuscular Volume 84 fl (84-94); Platelet Count 340 K/mm3 (140-440); Red Blood Count 3.79 M/mm3 (3.65-5.03); Red Cell Distribution Width 16.6 % (13.2-15.2); White Blood Count 16.9 K/mm3 (4.5-11.0)
[2017-09-04] MEDS ORDERED: LEVAQUIN 750MG/150ML 750 MG/150 ML BAG IV ONE (17:27)
--- NOTE | 2017-09-04 17:32 | Emergency Department Report ---
ED Shortness of Breath HPI - General Chief Complaint: Dyspnea/Respdistress Stated Complaint: ABNORMAL EKG Time Seen by Provider: 09/04/17 17:23 Source: EMS Mode of arrival: Stretcher Limitations: No Limitations - History of Present Illness Initial Comments: Patient is 56 years old male who was sent from an care for evaluation of an abnormal EKG and shortness of breath and chest pain as being going on for 2 days. Patient describes his chest pain as bilateral on both right and left aching in nature associated with shortness of breath and cough. Patient stated that he feels like he has pneumonia. He denied fever but he admitted chills. No other complaint at this moment. MD Complaint: shortness of breath, cough, chest pain -: days(s) Severity: moderate Pain Scale: 4 Quality: aching Consistency: constant Known History Of: congestive heart failure Associated Symptoms: chest pain - Related Data Home Medications Medication Instructions Recorded Confirmed Last Taken AtorvaSTATin [Lipitor] 40 mg PO BID 04/30/17 09/04/17 Unknown Carvedilol [Coreg] 25 mg PO BID 04/30/17 09/04/17 Unknown Colchicine [Colcrys] 0.6 mg PO BID 04/30/17 09/04/17 Unknown Tamsulosin [Flomax] 0.4 mg PO QDAY 04/30/17 09/04/17 Unknown amLODIPine [Norvasc] 10 mg PO DAILY 04/30/17 09/04/17 Unknown methOCARBAMOL [Robaxin TAB] 500 mg PO BID 04/30/17 09/04/17 Unknown Allergies Allergy/AdvReac Type Severity Reaction Status Date / Time chlorpromazine HCl Allergy Swelling Verified 04/30/17 09:27 [From Thorazine] haloperidol [From Haldol] Allergy Unknown Verified 09/04/17 16:37 lisinopril Allergy Unknown Verified 09/04/17 16:37 ED Review of Systems ROS: Stated complaint: ABNORMAL EKG Other details as noted in HPI Comment: All other systems reviewed and negative Constitutional: chills. denies: fever Respiratory: cough, shortness of breath, SOB at rest. denies: SOB with exertion Cardiovascular: chest pain Gastrointestinal: denies: abdominal pain, nausea, vomiting, hematemesis, melena , hematochezia Genitourinary: denies: urgency, dysuria, frequency, hematuria Musculoskeletal: denies: back pain Neurological: denies: headache, paresthesias ED Past Medical Hx - Past Medical History Previous Medical History?: Yes Hx Hypertension: Yes Hx Heart Attack/AMI: Yes Hx Congestive Heart Failure: No Hx Diabetes: No Hx Seizures: Yes Hx Psychiatric Treatment: Yes (depression) Hx Asthma: No Hx COPD: No Additional medical history: gout - Surgical History Past Surgical History?: Yes Additional Surgical History: multiple cardiac stents - Social History Smoking Status: Current Every Day Smoker Substance Use Type: Alcohol, Cocaine - Medications Home Medications: Home Medications Medication Instructions Recorded Confirmed Last Taken Type AtorvaSTATin [Lipitor] 40 mg PO BID 04/30/17 09/04/17 Unknown History Carvedilol [Coreg] 25 mg PO BID 04/30/17 09/04/17 Unknown History Colchicine [Colcrys] 0.6 mg PO BID 04/30/17 09/04/17 Unknown History Tamsulosin [Flomax] 0.4 mg PO QDAY 04/30/17 09/04/17 Unknown History amLODIPine [Norvasc] 10 mg PO DAILY 04/30/17 09/04/17 Unknown History methOCARBAMOL [Robaxin TAB] 500 mg PO BID 04/30/17 09/04/17 Unknown History ED Physical Exam - General Limitations: No Limitations General appearance: alert, in no apparent distress - Head Head exam: Present: normocephalic, normal inspection - Eye Eye exam: Present: normal appearance - ENT ENT exam: Present: normal exam, normal orophraynx - Neck Neck exam: Present: normal inspection, full ROM - Respiratory Respiratory exam: Present: normal lung sounds bilaterally, rales. Absent: respiratory distress, wheezes, rhonchi, stridor, accessory muscle use, decreased breath sounds, prolonged expiratory - Cardiovascular Cardiovascular Exam: Present: regular rate, normal rhythm, normal heart sounds - GI/Abdominal GI/Abdominal exam: Present: soft, normal bowel sounds. Absent: distended, tenderness, guarding, rebound, rigid, hyperactive bowel sounds, hypoactive bowel sounds, organomegaly, mass, bruit, pulsatile mass, hernia - Extremities Exam Extremities exam: Present: normal inspection, full ROM, normal capillary refill - Back Exam Back exam: Present: normal inspection. Absent: tenderness, CVA tenderness (R), CVA tenderness (L) - Neurological Exam Neurological exam: Present: alert, oriented X3, CN II-XII intact, normal gait - Psychiatric Psychiatric exam: Present: depressed - Skin Skin exam: Present: warm, intact, normal color ED Course Vital Signs 09/04/17 09/04/17 09/04/17 16:54 17:13 19:32 Temperature 97.8 F Pulse Rate 63 Respiratory 16 16 Rate Blood Pressure 131/67 Blood Pressure 153/79 [Left] O2 Sat by Pulse 100 100 97 Oximetry 09/04/17 09/04/17 09/04/17 20:01 20:31 21:00 Temperature Pulse Rate Respiratory Rate Blood Pressure 145/78 164/103 150/87 Blood Pressure [Left] O2 Sat by Pulse 96 92 94 Oximetry ED Medical Decision Making - Lab Data Result diagrams: 09/04/17 16:52 09/04/17 18:45 - EKG Data -: EKG Interpreted by Me EKG shows normal: sinus rhythm - EKG Data Interpretation: no acute changes - Radiology Data Radiology results: image reviewed Chest x-ray showed a right lower lobe infiltrate - Medical Decision Making Discussed with Dr. Morena Jewell, I presented the patient, she agreed to admit the patient to her service. Critical care attestation.: If time is entered above; I have spent that time in minutes in the direct care of this critically ill patient, excluding procedure time. ED Disposition Clinical Impression: Pneumonia, Shortness of breath Disposition: 09 OP ADMIT IP TO THIS HOSP Is pt being admited?: Yes Condition: Stable Instructions: Bacterial Pneumonia (ED)
[2017-09-04 17:42] LABS: Chloride TNR mmol/L (98-107); Potassium TNR mmol/L (3.6-5.0); Sodium TNR mmol/L (137-145)
[2017-09-04 17:43] LABS: Anion Gap TNR mmol/L; BUN/Creatinine Ratio TNR; Blood Urea Nitrogen TNR mg/dL (9-20); Calcium TNR mg/dL (8.4-10.2); Carbon Dioxide TNR mmol/L (22-30); Glucose TNR mg/dL (75-100)
[2017-09-04 18:00] LABS: Blastocytes % (Manual) 0 %
[2017-09-04 18:04] LABS: Anisocytosis 1+; Large Platelets Few; Platelet Estimate Consistent w Auto
[2017-09-04 18:05] LABS: Diff Status Complete
[2017-09-04 19:37] LABS: Anion Gap 21 mmol/L; BUN/Creatinine Ratio 14; Blood Urea Nitrogen 20 mg/dL (9-20); Calcium 8.6 mg/dL (8.4-10.2); Carbon Dioxide 23 mmol/L (22-30); Chloride 102.8 mmol/L (98-107); Glucose 127 mg/dL (75-100); Sodium 143 mmol/L (137-145)
[2017-09-04] MEDS ORDERED: ZOFRAN IV PRN (22:08)
[2017-09-04] MEDS ORDERED: MILK OF MAGNESIA PO PRN (22:08)
[2017-09-04] MEDS ORDERED: DULCOLAX PR PRN (22:08)
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
[2017-09-05 06:09] LABS: Hemoglobin 9.7 gm/dl (11.8-15.2); Mean Corpuscular HGB Conc 31 % (32-34); Mean Corpuscular Hemoglobin 26 pg (28-32); Mean Corpuscular Volume 84 fl (84-94); Platelet Count 270 K/mm3 (140-440); Red Cell Distribution Width 16.5 % (13.2-15.2); White Blood Count 16.3 K/mm3 (4.5-11.0)
[2017-09-05] MEDS: ZOSYN/NS 4.5GM/100ML 4.5 GM/100 ML VIAL IV SCH ×3 (06:23→22:42)
[2017-09-05 06:31] LABS: Anion Gap 19 mmol/L; BUN/Creatinine Ratio 15; Blood Urea Nitrogen 20 mg/dL (9-20); Calcium 8.4 mg/dL (8.4-10.2); Carbon Dioxide 24 mmol/L (22-30); Chloride 102.5 mmol/L (98-107); Glucose 129 mg/dL (75-100); Potassium 3.8 mmol/L (3.6-5.0); Sodium 142 mmol/L (137-145)
[2017-09-05 07:27] LABS: Anisocytosis 1+; Blastocytes % (Manual) 0 %; Hypochromasia Rare; Stomatocytes Few
[2017-09-05 07:28] LABS: Diff Status Complete; Tear Drop Cells Rare
--- NOTE | 2017-09-05 07:53 | XRay Report ---
PORTABLE CHEST INDICATION: Shortness of breath. COMPARISON: 04/30/2017 FINDINGS: Portable, frontal chest radiograph demonstrates stable cardiomediastinal silhouette and lungs with slightly prominent/crowded infrahilar markings. No pleural effusions or CHF. Stable bones. CONCLUSION: No significant acute chest process or interval change, as described. Thank you for the opportunity to participate in this patient's care.
[2017-09-05] MEDS: LEVAQUIN 750MG/150ML 750 MG/150 ML BAG IV SCH (11:17)
[2017-09-05] MEDS: LOVENOX SUB-Q SCH (11:18)
--- NOTE | 2017-09-05 14:49 | Progress Note ---
Assessment and Plan Assessment and plan: Patient is 56-year-old man with a history major depression disorder, dyslipidemia, hypertension, BPH and gout who was sent from [facility] psych facility to [facility] ED with shortness of breath and productive green cough. Patient was in [facility] psych facility under 1013 dated 08/31/2017 for suicide ideation. Patient denies suicidal ideation at this time. Patient states he is sad because his mother 3 months ago. Now, he was Diagnosed with pneumonia and admitted to this hospital. However, Chest x-ray shows no significant acute chest process or interval change. Patient does have chronic leukocytosis even when he left AMA in April 2017. -Acute bronchitis, without pneumonia on chest x-ray: De-escalate antibiotics -Major depression disorder with suicide ideation: Consulted mental health/psych , ?need updated 1012 -Hypertension: low salt diet, treat with antihypertensives. -Chronic leukocytosis: continue to monitor, consult Hematology instead of ID since this is chronic History Interval history: Patient was seen and examined. Follow-up on current diagnosis/shortness of breath and productive green cough. Overnight uneventful. Patient denies any chest pain, nausea/vomiting or severe headaches. Imaging, nursing note, chart, labs and old chart reviewed. Discussed with patient. Hospitalist Physical - Physical exam Narrative exam: GEN: WDWN, NAD, AWAKE, ALERT, ORIENTATED 3 HEENT: NCAT, EOMI, PERRL, OP Clear NECK: supple, no adenopathy, no thyromegaly, no JVD CVS/HEART: RRR, NORMAL S1S2, NO JVD, pulses present bilaterally CHEST/LUNGS: CTA B, Symmetrical chest expansion, good air entry bilaterally GI/Abdomen: soft, NTND, good bowel sounds, no guarding or rebound /Bladder: no suprapubic tenderness, no CVA or paraspinal tenderness EXT/Skin: no c/c/e, no obvious rash MSK: FROM x 4 Neuro: CN 2-12 grossly intact, no new focal deficits Psych: Withdrawn - Constitutional Vitals: Temp Pulse Resp BP Pulse Ox 98.1 F 72 20 154/87 98 09/05/17 08:42 09/05/17 12:00 09/05/17 08:42 09/05/17 08:42 09/05/17 08:42 Results - Labs CBC & Chem 7: 09/05/17 04:56 09/05/17 04:56 Labs: Laboratory Last Values WBC 16.3 K/mm3 (4.5-11.0) H 09/05/17 04:56 RBC 3.70 M/mm3 (3.65-5.03) 09/05/17 04:56 Hgb 9.7 gm/dl (11.8-15.2) L 09/05/17 04:56 Hct 31.0 % (35.5-45.6) L 09/05/17 04:56 MCV 84 fl (84-94) 09/05/17 04:56 MCH 26 pg (28-32) L 09/05/17 04:56 MCHC 31 % (32-34) L 09/05/17 04:56 RDW 16.5 % (13.2-15.2) H 09/05/17 04:56 Plt Count 270 K/mm3 (140-440) 09/05/17 04:56 Add Manual Diff Complete 09/05/17 04:56 Total Counted 100 09/05/17 04:56 Seg Neuts % (Manual) 48.0 % (40.0-70.0) 09/05/17 04:56 Band Neutrophils % 28.0 % 09/05/17 04:56 Lymphocytes % (Manual) 9.0 % (13.4-35.0) L 09/05/17 04:56 Reactive Lymphs % (Man) 0 % 09/05/17 04:56 Monocytes % (Manual) 6.0 % (0.0-7.3) 09/05/17 04:56 Eosinophils % (Manual) 1.0 % (0.0-4.3) 09/05/17 04:56 Basophils % (Manual) 1.0 % (0.0-1.8) 09/05/17 04:56 Metamyelocytes % 5.0 % 09/05/17 04:56 Myelocytes % 0 % 09/05/17 04:56 Promyelocytes % 2.0 % 09/05/17 04:56 Blast Cells % 0 % 09/05/17 04:56 Nucleated RBC % Not Reportable 09/05/17 04:56 Seg Neutrophils # Man 7.8 K/mm3 (1.8-7.7) H 09/05/17 04:56 Band Neutrophils # 4.6 K/mm3 09/05/17 04:56 Lymphocytes # (Manual) 1.5 K/mm3 (1.2-5.4) 09/05/17 04:56 Abs React Lymphs (Man) 0.0 K/mm3 09/05/17 04:56 Monocytes # (Manual) 1.0 K/mm3 (0.0-0.8) H 09/05/17 04:56 Eosinophils # (Manual) 0.2 K/mm3 (0.0-0.4) 09/05/17 04:56 Basophils # (Manual) 0.2 K/mm3 (0.0-0.1) H 09/05/17 04:56 Metamyelocytes # 0.8 K/mm3 09/05/17 04:56 Myelocytes # 0.0 K/mm3 09/05/17 04:56 Promyelocytes # 0.3 K/mm3 09/05/17 04:56 Blast Cells # 0.0 K/mm3 09/05/17 04:56 WBC Morphology Not Reportable 09/05/17 04:56 Hypersegmented Neuts Not Reportable 09/05/17 04:56 Hyposegmented Neuts Not Reportable 09/05/17 04:56 Hypogranular Neuts Not Reportable 09/05/17 04:56 Smudge Cells Not Reportable 09/05/17 04:56 Toxic Granulation Not Reportable 09/05/17 04:56 Toxic Vacuolation Not Reportable 09/05/17 04:56 Dohle Bodies Not Reportable 09/05/17 04:56 Pelger-Huet Anomaly Not Reportable 09/05/17 04:56 Archana Rods Not Reportable 09/05/17 04:56 Platelet Estimate Appears normal 09/05/17 04:56 Clumped Platelets Not Reportable 09/05/17 04:56 Plt Clumps, EDTA Not Reportable 09/05/17 04:56 Large Platelets Not Reportable 09/05/17 04:56 Giant Platelets Not Reportable 09/05/17 04:56 Platelet Satelliting Not Reportable 09/05/17 04:56 Plt Morphology Comment Not Reportable 09/05/17 04:56 RBC Morphology Not Reportable 09/05/17 04:56 Dimorphic RBCs Not Reportable 09/05/17 04:56 Polychromasia Not Reportable 09/05/17 04:56 Hypochromasia Rare 09/05/17 04:56 Poikilocytosis Not Reportable 09/05/17 04:56 Anisocytosis 1+ 09/05/17 04:56 Microcytosis Not Reportable 09/05/17 04:56 Macrocytosis Not Reportable 09/05/17 04:56 Spherocytes Not Reportable 09/05/17 04:56 Pappenheimer Bodies Not Reportable 09/05/17 04:56 Sickle Cells Not Reportable 09/05/17 04:56 Target Cells Not Reportable 09/05/17 04:56 Tear Drop Cells Rare 09/05/17 04:56 Ovalocytes Not Reportable 09/05/17 04:56 Stomatocytes Few 09/05/17 04:56 Helmet Cells Not Reportable 09/05/17 04:56 Caceres-[place] Bodies Not Reportable 09/05/17 04:56 [place] Rings Not Reportable 09/05/17 04:56 Bertram Cells Not Reportable 09/05/17 04:56 Bite Cells Not Reportable 09/05/17 04:56 Crenated Cell Not Reportable 09/05/17 04:56 Elliptocytes Not Reportable 09/05/17 04:56 Acanthocytes (Spur) Not Reportable 09/05/17 04:56 Rouleaux Not Reportable 09/05/17 04:56 Hemoglobin C Crystals Not Reportable 09/05/17 04:56 Schistocytes Not Reportable 09/05/17 04:56 Malaria parasites Not Reportable 09/05/17 04:56 Elroy Bodies Not Reportable 09/05/17 04:56 Hem Pathologist Commnt No 09/05/17 04:56 Sodium 142 mmol/L (137-145) 09/05/17 04:56 Potassium 3.8 mmol/L (3.6-5.0) 09/05/17 04:56 Chloride 102.5 mmol/L (98-107) 09/05/17 04:56 Carbon Dioxide 24 mmol/L (22-30) 09/05/17 04:56 Anion Gap 19 mmol/L 09/05/17 04:56 BUN 20 mg/dL (9-20) 09/05/17 04:56 Creatinine 1.3 mg/dL (0.8-1.5) 09/05/17 04:56 Estimated GFR > 60 ml/min 09/05/17 04:56 BUN/Creatinine Ratio 15 % 09/05/17 04:56 Glucose 129 mg/dL (75-100) H 09/05/17 04:56 Calcium 8.4 mg/dL (8.4-10.2) 09/05/17 04:56 Troponin T TNR 09/04/17 16:52
--- NOTE | 2017-09-05 17:37 | Hem/Onc Consultation ---
History of Present Illness - Reason for Consult Consult date: 09/05/17 - History of Present Illness Patient chronic resident at [facility] admitted with leukocytosis. Has depression and suicidal. Has sitter in room. Past History Past Medical History: other (severe psychiatric issues) Medications and Allergies Allergies Allergy/AdvReac Type Severity Reaction Status Date / Time chlorpromazine HCl Allergy Swelling Verified 04/30/17 09:27 [From Thorazine] haloperidol [From Haldol] Allergy Unknown Verified 09/04/17 16:37 lisinopril Allergy Unknown Verified 09/04/17 16:37 Home Medications Medication Instructions Recorded Confirmed Last Taken Type AtorvaSTATin [Lipitor] 40 mg PO BID 04/30/17 09/04/17 Unknown History Carvedilol [Coreg] 25 mg PO BID 04/30/17 09/04/17 Unknown History Colchicine [Colcrys] 0.6 mg PO BID 04/30/17 09/04/17 Unknown History Tamsulosin [Flomax] 0.4 mg PO QDAY 04/30/17 09/04/17 Unknown History amLODIPine [Norvasc] 10 mg PO DAILY 04/30/17 09/04/17 Unknown History methOCARBAMOL [Robaxin TAB] 500 mg PO BID 04/30/17 09/04/17 Unknown History Active Meds: Active Medications Acetaminophen (Tylenol) 650 mg PO Q4H PRN PRN Reason: Pain MILD(1-3)/Fever >100.5/JAY Bisacodyl (Dulcolax) 10 mg [place] QDAY PRN PRN Reason: Constipation unrelieved by MOM Enoxaparin Sodium (Lovenox) 40 mg SUB-Q QDAY [facility] Last Admin: 09/05/17 11:18 Dose: Not Given Levofloxacin/Dextrose (Levaquin 750mg/150ml) 750 mg in 150 mls @ 100 mls/hr IV Q24HR COY PRN Reason: Protocol Last Admin: 09/05/17 11:17 Dose: 100 mls/hr Piperacillin Sod/Tazobactam Sod (Zosyn/Ns 4.5gm/100ml) 4.5 gm in 100 mls @ 200 mls/hr IV Q8HR COY PRN Reason: Protocol Last Admin: 09/05/17 15:43 Dose: 200 mls/hr Magnesium Hydroxide (Milk Of Magnesia) 30 ml PO Q4H PRN PRN Reason: Constipation Ondansetron HCl (Zofran) 4 mg IV Q8H PRN PRN Reason: N/V unrelieved by Reglan Review of Systems All systems: negative (tired) Exam - Constitutional Vitals: Last Vital Signs Temp 97.8 F 09/05/17 13:00 Pulse 72 09/05/17 13:00 Resp 20 09/05/17 13:00 BP 151/82 09/05/17 13:00 Pulse Ox 99 09/05/17 13:00 Pain Intensity (0-10): 2/10 General appearance: no acute distress - EENT Eyes: PERRL ENT: hearing intact Lymph node exam: negative cervical - Neck Neck: supple - Respiratory Respiratory effort: Positive: normal Respiratory: bilateral: CTA - Cardiovascular Rhythm: regular Heart Sounds: Present: S1 & S2 Extremities: pulses intact - Gastrointestinal General gastrointestinal: Present: soft Results - Labs lab Results: Laboratory Results - last 24 hr 09/04/17 09/04/17 09/04/17 16:52 16:52 18:45 WBC RBC Hgb Hct MCV MCH MCHC RDW Plt Count Add Manual Diff Complete Total Counted 100 Seg Neuts % (Manual) 77.0 H Band Neutrophils % 0 Lymphocytes % (Manual) 9.0 L Reactive Lymphs % (Man) 0 Monocytes % (Manual) 4.0 Eosinophils % (Manual) 1.0 Basophils % (Manual) 1.0 Metamyelocytes % 4.0 Myelocytes % 4.0 Promyelocytes % 0 Blast Cells % 0 Nucleated RBC % 1.0 H Seg Neutrophils # Man 13.0 H Band Neutrophils # 0.0 Lymphocytes # (Manual) 1.5 Abs React Lymphs (Man) 0.0 Monocytes # (Manual) 0.7 Eosinophils # (Manual) 0.2 Basophils # (Manual) 0.2 H Metamyelocytes # 0.7 Myelocytes # 0.7 Promyelocytes # 0.0 Blast Cells # 0.0 WBC Morphology Not Reportable Hypersegmented Neuts Not Reportable Hyposegmented Neuts Not Reportable Hypogranular Neuts Not Reportable Smudge Cells Not Reportable Toxic Granulation Not Reportable Toxic Vacuolation Not Reportable Dohle Bodies Not Reportable Pelger-Huet Anomaly Not Reportable Archana Rods Not Reportable Platelet Estimate Consistent w auto Clumped Platelets Not Reportable Plt Clumps, EDTA Not Reportable Large Platelets Few Giant Platelets Not Reportable Platelet Satelliting Not Reportable Plt Morphology Comment Not Reportable RBC Morphology Not Reportable Dimorphic RBCs Not Reportable Polychromasia Not Reportable Hypochromasia Not Reportable Poikilocytosis Not Reportable Anisocytosis 1+ Microcytosis Not Reportable Macrocytosis Not Reportable Spherocytes Not Reportable Pappenheimer Bodies Not Reportable Sickle Cells Not Reportable Target Cells Not Reportable Tear Drop Cells Not Reportable Ovalocytes Not Reportable Stomatocytes Helmet Cells Not Reportable Caceres-[place] Bodies Not Reportable [place] Rings Not Reportable Bertram Cells Not Reportable Bite Cells Not Reportable Crenated Cell Not Reportable Elliptocytes Not Reportable Acanthocytes (Spur) Not Reportable Rouleaux Not Reportable Hemoglobin C Crystals Not Reportable Schistocytes Not Reportable Malaria parasites Not Reportable Elroy Bodies Not Reportable Hem Pathologist Commnt No Sodium TNR 143 Potassium TNR 4.0 Chloride TNR 102.8 Carbon Dioxide TNR 23 Anion Gap TNR 21 BUN TNR 20 Creatinine TNR 1.4 Estimated GFR TNR > 60 BUN/Creatinine Ratio TNR 14 Glucose TNR 127 H Calcium TNR 8.6 Troponin T TNR 09/05/17 09/05/17 04:56 04:56 WBC 16.3 H RBC 3.70 Hgb 9.7 L Hct 31.0 L MCV 84 MCH 26 L MCHC 31 L RDW 16.5 H Plt Count 270 Add Manual Diff Complete Total Counted 100 Seg Neuts % (Manual) 48.0 Band Neutrophils % 28.0 Lymphocytes % (Manual) 9.0 L Reactive Lymphs % (Man) 0 Monocytes % (Manual) 6.0 Eosinophils % (Manual) 1.0 Basophils % (Manual) 1.0 Metamyelocytes % 5.0 Myelocytes % 0 Promyelocytes % 2.0 Blast Cells % 0 Nucleated RBC % Not Reportable Seg Neutrophils # Man 7.8 H Band Neutrophils # 4.6 Lymphocytes # (Manual) 1.5 Abs React Lymphs (Man) 0.0 Monocytes # (Manual) 1.0 H Eosinophils # (Manual) 0.2 Basophils # (Manual) 0.2 H Metamyelocytes # 0.8 Myelocytes # 0.0 Promyelocytes # 0.3 Blast Cells # 0.0 WBC Morphology Not Reportable Hypersegmented Neuts Not Reportable Hyposegmented Neuts Not Reportable Hypogranular Neuts Not Reportable Smudge Cells Not Reportable Toxic Granulation Not Reportable Toxic Vacuolation Not Reportable Dohle Bodies Not Reportable Pelger-Huet Anomaly Not Reportable Archana Rods Not Reportable Platelet Estimate Appears normal Clumped Platelets Not Reportable Plt Clumps, EDTA Not Reportable Large Platelets Not Reportable Giant Platelets Not Reportable Platelet Satelliting Not Reportable Plt Morphology Comment Not Reportable RBC Morphology Not Reportable Dimorphic RBCs Not Reportable Polychromasia Not Reportable Hypochromasia Rare Poikilocytosis Not Reportable Anisocytosis 1+ Microcytosis Not Reportable Macrocytosis Not Reportable Spherocytes Not Reportable Pappenheimer Bodies Not Reportable Sickle Cells Not Reportable Target Cells Not Reportable Tear Drop Cells Rare Ovalocytes Not Reportable Stomatocytes Few Helmet Cells Not Reportable Caceres-[place] Bodies Not Reportable [place] Rings Not Reportable Bertram Cells Not Reportable Bite Cells Not Reportable Crenated Cell Not Reportable Elliptocytes Not Reportable Acanthocytes (Spur) Not Reportable Rouleaux Not Reportable Hemoglobin C Crystals Not Reportable Schistocytes Not Reportable Malaria parasites Not Reportable Elroy Bodies Not Reportable Hem Pathologist Commnt No Sodium 142 Potassium 3.8 Chloride 102.5 Carbon Dioxide 24 Anion Gap 19 BUN 20 Creatinine 1.3 Estimated GFR > 60 BUN/Creatinine Ratio 15 Glucose 129 H Calcium 8.4 Troponin T Assessment and Plan - Patient Problems (1) Pneumonia Current Visit: Yes Status: Acute Plan to address problem: Has chronic leukocytois. recommend bone marrow aspiration and biopsy. Await bone marrow results. Recommend ID consult.
[2017-09-05] MEDS: TYLENOL PO PRN (19:05)
[2017-09-06] MEDS: AMBIEN PO PRN (00:57)
[2017-09-06] MEDS: ZOSYN/NS 4.5GM/100ML 4.5 GM/100 ML VIAL IV SCH ×2 (06:52→20:31)
[2017-09-06] MEDS: LOVENOX SUB-Q SCH (10:00)
[2017-09-06] MEDS: LEVAQUIN 750MG/150ML 750 MG/150 ML BAG IV SCH (10:00)
[2017-09-06 10:53] LABS: INR 1.03 (0.87-1.13)
[2017-09-06 10:54] LABS: Partial Thromboplastin Time 34.7 Sec. (24.2-36.6)
[2017-09-06] MEDS ORDERED: VERSED IV NR (11:30)
[2017-09-06] MEDS ORDERED: SUBLIMAZE IV NR (11:30)
[2017-09-06] MEDS ORDERED: VERSED IV ONE (11:36)
[2017-09-06] MEDS ORDERED: SUBLIMAZE ONE (11:36)
[2017-09-06] MEDS ORDERED: BENADRYL ONE (12:20)
[2017-09-06] MEDS ORDERED: BENADRYL IV ONE (12:28)
--- NOTE | 2017-09-06 12:59 | Cat Scan Report ---
CT BIOPSY BONE MARROW: HISTORY: Leukocytosis. DESCRIPTION OF PROCEDURE: Informed consent was obtained. Sterile technique was utilized. Conscious sedation was accomplished with Versed and fentanyl. The patient was sedated for 15 minutes. Independent cardiorespiratory monitoring by RN. Intra-observer time of [address] guidance, an introducer needle was advanced into the right posterior iliac bone. 4 aspirations and one 11-gauge bone core was obtained. Pathology was present to handle the sample. The patient tolerated the procedure without difficulty. IMPRESSION: Successful CT-guided bone marrow biopsy.
--- NOTE | 2017-09-06 14:33 | Progress Note ---
Assessment and Plan Assessment and plan: Patient is 56-year-old man with a history major depression disorder, dyslipidemia, hypertension, BPH and gout who was sent from [place] psych facility to [facility] ED with shortness of breath and productive green cough. Patient was in [facility] facility under 1013 dated 08/31/2017 for suicide ideation. Patient denies suicidal ideation at this time. Patient states he is sad because his mother 3 months ago. Now, he was Diagnosed with pneumonia and admitted to this hospital. However, Chest x-ray shows no significant acute chest process or interval change. Patient does have chronic leukocytosis even when he left AMA in April 2017. -Acute bronchitis, without pneumonia on chest x-ray: De-escalate antibiotics -Major depression disorder with suicide ideation: Consulted mental health/psych , ?need updated 1012 -Hypertension: low salt diet, treat with antihypertensives. -Chronic leukocytosis: continue to monitor, consult Hematology instead of ID since this is chronic==>bone marrow bx done ruperto Ovalle NP from mental health department, he believes patient was discharged from [place] 1013, he will investigate History Interval history: Patient was seen and examined. Follow-up on current diagnosis/shortness of breath and productive green cough. Overnight uneventful. Patient denies any chest pain, nausea/vomiting or severe headaches. Imaging, nursing note, chart, labs and old chart reviewed. Discussed with patient. Hospitalist Physical - Physical exam Narrative exam: GEN: WDWN, NAD, AWAKE, ALERT, ORIENTATED 3 HEENT: NCAT, EOMI, PERRL, OP Clear NECK: supple, no adenopathy, no thyromegaly, no JVD CVS/HEART: RRR, NORMAL S1S2, NO JVD, pulses present bilaterally CHEST/LUNGS: CTA B, Symmetrical chest expansion, good air entry bilaterally GI/Abdomen: soft, NTND, good bowel sounds, no guarding or rebound /Bladder: no suprapubic tenderness, no CVA or paraspinal tenderness EXT/Skin: no c/c/e, no obvious rash MSK: FROM x 4 Neuro: CN 2-12 grossly intact, no new focal deficits Psych: Withdrawn - Constitutional Vitals: Temp Pulse Resp BP Pulse Ox 97.6 F 85 14 176/108 99 09/06/17 09:12 09/06/17 12:34 09/06/17 12:34 09/06/17 12:34 09/06/17 12:34 Results - Labs CBC & Chem 7: 09/05/17 04:56 09/05/17 04:56 Labs: Laboratory Last Values WBC 16.3 K/mm3 (4.5-11.0) H 09/05/17 04:56 RBC 3.70 M/mm3 (3.65-5.03) 09/05/17 04:56 Hgb 9.7 gm/dl (11.8-15.2) L 09/05/17 04:56 Hct 31.0 % (35.5-45.6) L 09/05/17 04:56 MCV 84 fl (84-94) 09/05/17 04:56 MCH 26 pg (28-32) L 09/05/17 04:56 MCHC 31 % (32-34) L 09/05/17 04:56 RDW 16.5 % (13.2-15.2) H 09/05/17 04:56 Plt Count 270 K/mm3 (140-440) 09/05/17 04:56 Add Manual Diff Complete 09/05/17 04:56 Total Counted 100 09/05/17 04:56 Seg Neuts % (Manual) 48.0 % (40.0-70.0) 09/05/17 04:56 Band Neutrophils % 28.0 % 09/05/17 04:56 Lymphocytes % (Manual) 9.0 % (13.4-35.0) L 09/05/17 04:56 Reactive Lymphs % (Man) 0 % 09/05/17 04:56 Monocytes % (Manual) 6.0 % (0.0-7.3) 09/05/17 04:56 Eosinophils % (Manual) 1.0 % (0.0-4.3) 09/05/17 04:56 Basophils % (Manual) 1.0 % (0.0-1.8) 09/05/17 04:56 Metamyelocytes % 5.0 % 09/05/17 04:56 Myelocytes % 0 % 09/05/17 04:56 Promyelocytes % 2.0 % 09/05/17 04:56 Blast Cells % 0 % 09/05/17 04:56 Nucleated RBC % Not Reportable 09/05/17 04:56 Seg Neutrophils # Man 7.8 K/mm3 (1.8-7.7) H 09/05/17 04:56 Band Neutrophils # 4.6 K/mm3 09/05/17 04:56 Lymphocytes # (Manual) 1.5 K/mm3 (1.2-5.4) 09/05/17 04:56 Abs React Lymphs (Man) 0.0 K/mm3 09/05/17 04:56 Monocytes # (Manual) 1.0 K/mm3 (0.0-0.8) H 09/05/17 04:56 Eosinophils # (Manual) 0.2 K/mm3 (0.0-0.4) 09/05/17 04:56 Basophils # (Manual) 0.2 K/mm3 (0.0-0.1) H 09/05/17 04:56 Metamyelocytes # 0.8 K/mm3 09/05/17 04:56 Myelocytes # 0.0 K/mm3 09/05/17 04:56 Promyelocytes # 0.3 K/mm3 09/05/17 04:56 Blast Cells # 0.0 K/mm3 09/05/17 04:56 WBC Morphology Not Reportable 09/05/17 04:56 Hypersegmented Neuts Not Reportable 09/05/17 04:56 Hyposegmented Neuts Not Reportable 09/05/17 04:56 Hypogranular Neuts Not Reportable 09/05/17 04:56 Smudge Cells Not Reportable 09/05/17 04:56 Toxic Granulation Not Reportable 09/05/17 04:56 Toxic Vacuolation Not Reportable 09/05/17 04:56 Dohle Bodies Not Reportable 09/05/17 04:56 Pelger-Huet Anomaly Not Reportable 09/05/17 04:56 Archana Rods Not Reportable 09/05/17 04:56 Platelet Estimate Appears normal 09/05/17 04:56 Clumped Platelets Not Reportable 09/05/17 04:56 Plt Clumps, EDTA Not Reportable 09/05/17 04:56 Large Platelets Not Reportable 09/05/17 04:56 Giant Platelets Not Reportable 09/05/17 04:56 Platelet Satelliting Not Reportable 09/05/17 04:56 Plt Morphology Comment Not Reportable 09/05/17 04:56 RBC Morphology Not Reportable 09/05/17 04:56 Dimorphic RBCs Not Reportable 09/05/17 04:56 Polychromasia Not Reportable 09/05/17 04:56 Hypochromasia Rare 09/05/17 04:56 Poikilocytosis Not Reportable 09/05/17 04:56 Anisocytosis 1+ 09/05/17 04:56 Microcytosis Not Reportable 09/05/17 04:56 Macrocytosis Not Reportable 09/05/17 04:56 Spherocytes Not Reportable 09/05/17 04:56 Pappenheimer Bodies Not Reportable 09/05/17 04:56 Sickle Cells Not Reportable 09/05/17 04:56 Target Cells Not Reportable 09/05/17 04:56 Tear Drop Cells Rare 09/05/17 04:56 Ovalocytes Not Reportable 09/05/17 04:56 Stomatocytes Few 09/05/17 04:56 Helmet Cells Not Reportable 09/05/17 04:56 Caceres-[place] Bodies Not Reportable 09/05/17 04:56 [place] Rings Not Reportable 09/05/17 04:56 [place]ram Cells Not Reportable 09/05/17 04:56 Bite Cells Not Reportable 09/05/17 04:56 Crenated Cell Not Reportable 09/05/17 04:56 Elliptocytes Not Reportable 09/05/17 04:56 Acanthocytes (Spur) Not Reportable 09/05/17 04:56 Rouleaux Not Reportable 09/05/17 04:56 Hemoglobin C Crystals Not Reportable 09/05/17 04:56 Schistocytes Not Reportable 09/05/17 04:56 Malaria parasites Not Reportable 09/05/17 04:56 Elroy Bodies Not Reportable 09/05/17 04:56 Hem Pathologist Commnt No 09/05/17 04:56 PT 14.0 Sec. (12.2-14.9) 09/06/17 10:16 INR 1.03 (0.87-1.13) 09/06/17 10:16 APTT 34.7 Sec. (24.2-36.6) 09/06/17 10:16 Sodium 142 mmol/L (137-145) 09/05/17 04:56 Potassium 3.8 mmol/L (3.6-5.0) 09/05/17 04:56 Chloride 102.5 mmol/L (98-107) 09/05/17 04:56 Carbon Dioxide 24 mmol/L (22-30) 09/05/17 04:56 Anion Gap 19 mmol/L 09/05/17 04:56 BUN 20 mg/dL (9-20) 09/05/17 04:56 Creatinine 1.3 mg/dL (0.8-1.5) 09/05/17 04:56 Estimated GFR > 60 ml/min 09/05/17 04:56 BUN/Creatinine Ratio 15 % 09/05/17 04:56 Glucose 129 mg/dL (75-100) H 09/05/17 04:56 POC Glucose 126 (70-105) H 09/05/17 23:52 Calcium 8.4 mg/dL (8.4-10.2) 09/05/17 04:56 Troponin T TNR 09/04/17 16:52
[2017-09-06] MEDS: TYLENOL PO PRN (20:35)
[2017-09-07] MEDS: AMBIEN PO PRN ×2 (00:20→21:24)
[2017-09-07] MEDS: LOVENOX SUB-Q SCH (10:05)
[2017-09-07] MEDS: LEVAQUIN 750MG/150ML 750 MG/150 ML BAG IV SCH (10:06)
--- NOTE | 2017-09-07 13:23 | Progress Note ---
Assessment and Plan Assessment and plan: Patient is 56-year-old man with a history major depression disorder, dyslipidemia, hypertension, BPH and gout who was sent from [place] psych facility to [facility] ED with shortness of breath and productive green cough. Patient was in [facility] facility under 1013 dated 08/31/2017 for suicide ideation. Patient denies suicidal ideation at this time. Patient states he is sad because his mother 3 months ago. Now, he was Diagnosed with pneumonia and admitted to this hospital. However, Chest x-ray shows no significant acute chest process or interval change. Patient does have chronic leukocytosis even when he left [facility] in April 2017. -Acute bronchitis, without pneumonia on chest x-ray: De-escalate antibiotics -Major depression disorder with suicide ideation: Consulted mental health/psych , ?need updated 1012 -Hypertension: low salt diet, treat with antihypertensives. -Chronic leukocytosis: continue to monitor, consult Hematology instead of ID since this is chronic==>bone marrow bx done ruperto Ovalle NP from mental health department, he believes patient was discharged from [place] 1013, he will investigate spoke with Vasquez again, patient will be seen by WILLARD Hallman today If cleared from mental health standpoint, he can be discharged tomorrow, bone marrow can be followed up as outpatient. History Interval history: Patient was seen and examined. Follow-up on current diagnosis/shortness of breath and productive green cough. Overnight uneventful. Patient denies any chest pain, nausea/vomiting or severe headaches. Imaging, nursing note, chart, labs and old chart reviewed. Discussed with patient. Hospitalist Physical - Physical exam Narrative exam: GEN: WDWN, NAD, AWAKE, ALERT, ORIENTATED 3 HEENT: NCAT, EOMI, PERRL, OP Clear NECK: supple, no adenopathy, no thyromegaly, no JVD CVS/HEART: RRR, NORMAL S1S2, NO JVD, pulses present bilaterally CHEST/LUNGS: CTA B, Symmetrical chest expansion, good air entry bilaterally GI/Abdomen: soft, NTND, good bowel sounds, no guarding or rebound /Bladder: no suprapubic tenderness, no CVA or paraspinal tenderness EXT/Skin: no c/c/e, no obvious rash MSK: FROM x 4 Neuro: CN 2-12 grossly intact, no new focal deficits Psych: Withdrawn - Constitutional Vitals: Temp Pulse Resp BP Pulse Ox 98.6 F 76 20 140/86 97 09/07/17 04:00 09/07/17 04:00 09/07/17 04:00 09/07/17 04:00 09/07/17 04:00 Results - Labs CBC & Chem 7: 09/05/17 04:56 09/05/17 04:56 Labs: Laboratory Last Values WBC 16.3 K/mm3 (4.5-11.0) H 09/05/17 04:56 RBC 3.70 M/mm3 (3.65-5.03) 09/05/17 04:56 Hgb 9.7 gm/dl (11.8-15.2) L 09/05/17 04:56 Hct 31.0 % (35.5-45.6) L 09/05/17 04:56 MCV 84 fl (84-94) 09/05/17 04:56 MCH 26 pg (28-32) L 09/05/17 04:56 MCHC 31 % (32-34) L 09/05/17 04:56 RDW 16.5 % (13.2-15.2) H 09/05/17 04:56 Plt Count 270 K/mm3 (140-440) 09/05/17 04:56 Add Manual Diff Complete 09/05/17 04:56 Total Counted 100 09/05/17 04:56 Seg Neuts % (Manual) 48.0 % (40.0-70.0) 09/05/17 04:56 Band Neutrophils % 28.0 % 09/05/17 04:56 Lymphocytes % (Manual) 9.0 % (13.4-35.0) L 09/05/17 04:56 Reactive Lymphs % (Man) 0 % 09/05/17 04:56 Monocytes % (Manual) 6.0 % (0.0-7.3) 09/05/17 04:56 Eosinophils % (Manual) 1.0 % (0.0-4.3) 09/05/17 04:56 Basophils % (Manual) 1.0 % (0.0-1.8) 09/05/17 04:56 Metamyelocytes % 5.0 % 09/05/17 04:56 Myelocytes % 0 % 09/05/17 04:56 Promyelocytes % 2.0 % 09/05/17 04:56 Blast Cells % 0 % 09/05/17 04:56 Nucleated RBC % Not Reportable 09/05/17 04:56 Seg Neutrophils # Man 7.8 K/mm3 (1.8-7.7) H 09/05/17 04:56 Band Neutrophils # 4.6 K/mm3 09/05/17 04:56 Lymphocytes # (Manual) 1.5 K/mm3 (1.2-5.4) 09/05/17 04:56 Abs React Lymphs (Man) 0.0 K/mm3 09/05/17 04:56 Monocytes # (Manual) 1.0 K/mm3 (0.0-0.8) H 09/05/17 04:56 Eosinophils # (Manual) 0.2 K/mm3 (0.0-0.4) 09/05/17 04:56 Basophils # (Manual) 0.2 K/mm3 (0.0-0.1) H 09/05/17 04:56 Metamyelocytes # 0.8 K/mm3 09/05/17 04:56 Myelocytes # 0.0 K/mm3 09/05/17 04:56 Promyelocytes # 0.3 K/mm3 09/05/17 04:56 Blast Cells # 0.0 K/mm3 09/05/17 04:56 WBC Morphology Not Reportable 09/05/17 04:56 Hypersegmented Neuts Not Reportable 09/05/17 04:56 Hyposegmented Neuts Not Reportable 09/05/17 04:56 Hypogranular Neuts Not Reportable 09/05/17 04:56 Smudge Cells Not Reportable 09/05/17 04:56 Toxic Granulation Not Reportable 09/05/17 04:56 Toxic Vacuolation Not Reportable 09/05/17 04:56 Dohle Bodies Not Reportable 09/05/17 04:56 Pelger-Huet Anomaly Not Reportable 09/05/17 04:56 Archana Rods Not Reportable 09/05/17 04:56 Platelet Estimate Appears normal 09/05/17 04:56 Clumped Platelets Not Reportable 09/05/17 04:56 Plt Clumps, EDTA Not Reportable 09/05/17 04:56 Large Platelets Not Reportable 09/05/17 04:56 Giant Platelets Not Reportable 09/05/17 04:56 Platelet Satelliting Not Reportable 09/05/17 04:56 Plt Morphology Comment Not Reportable 09/05/17 04:56 RBC Morphology Not Reportable 09/05/17 04:56 Dimorphic RBCs Not Reportable 09/05/17 04:56 Polychromasia Not Reportable 09/05/17 04:56 Hypochromasia Rare 09/05/17 04:56 Poikilocytosis Not Reportable 09/05/17 04:56 Anisocytosis 1+ 09/05/17 04:56 Microcytosis Not Reportable 09/05/17 04:56 Macrocytosis Not Reportable 09/05/17 04:56 Spherocytes Not Reportable 09/05/17 04:56 Pappenheimer Bodies Not Reportable 09/05/17 04:56 Sickle Cells Not Reportable 09/05/17 04:56 Target Cells Not Reportable 09/05/17 04:56 Tear Drop Cells Rare 09/05/17 04:56 Ovalocytes Not Reportable 09/05/17 04:56 Stomatocytes Few 09/05/17 04:56 Helmet Cells Not Reportable 09/05/17 04:56 [place]ace[place] Bodies Not Reportable 09/05/17 04:56 [place] Rings Not Reportable 09/05/17 04:56 [place] Cells Not Reportable 09/05/17 04:56 Bite Cells Not Reportable 09/05/17 04:56 Crenated Cell Not Reportable 09/05/17 04:56 Elliptocytes Not Reportable 09/05/17 04:56 Acanthocytes (Spur) Not Reportable 09/05/17 04:56 Rouleaux Not Reportable 09/05/17 04:56 Hemoglobin C Crystals Not Reportable 09/05/17 04:56 Schistocytes Not Reportable 09/05/17 04:56 Malaria parasites Not Reportable 09/05/17 04:56 Elroy Bodies Not Reportable 09/05/17 04:56 Hem Pathologist Commnt No 09/05/17 04:56 PT 14.0 Sec. (12.2-14.9) 09/06/17 10:16 INR 1.03 (0.87-1.13) 09/06/17 10:16 APTT 34.7 Sec. (24.2-36.6) 09/06/17 10:16 Sodium 142 mmol/L (137-145) 09/05/17 04:56 Potassium 3.8 mmol/L (3.6-5.0) 09/05/17 04:56 Chloride 102.5 mmol/L (98-107) 09/05/17 04:56 Carbon Dioxide 24 mmol/L (22-30) 09/05/17 04:56 Anion Gap 19 mmol/L 09/05/17 04:56 BUN 20 mg/dL (9-20) 09/05/17 04:56 Creatinine 1.3 mg/dL (0.8-1.5) 09/05/17 04:56 Estimated GFR > 60 ml/min 09/05/17 04:56 BUN/Creatinine Ratio 15 % 09/05/17 04:56 Glucose 129 mg/dL (75-100) H 09/05/17 04:56 POC Glucose 126 (70-105) H 09/05/17 23:52 Calcium 8.4 mg/dL (8.4-10.2) 09/05/17 04:56 Troponin T TNR 09/04/17 16:52
[2017-09-07] MEDS: NORVASC PO SCH (17:15)
--- NOTE | 2017-09-07 17:24 | Consultation ---
History of Present Illness - Reason for Consult Consult date: 09/07/17 Reason for consult: psychiatric evaluation - Chief Complaint Chief complaint: "They had to come get me." Mr. Alonso is 56 years old male seen for psychiatric evaluation on the medical floor. He was sent to the ER for abnormal EKG and shortness of breath and chest pain from [facility] inpatient facility. He also reports he fell back and hit his head from a standing position. He states he has been "losing memories" since then.He reports seeing dots, and states that is new for him. He complains of severe headache. He was unable to complete MMSE as he was perseverating on getting his belonging from [facility] and being transferred to the lodge. He states he was there 2 months ago. [facility] psychiatric evaluation reviewed. He presented to [facility] for suicidal ideation and required detox from alcohol. He currently denies suicidal ideation. He denies homicidal ideation. No auditory hallucinations reported. He states his goal is to have a stable place to live or at least stay for the present. He reports being homeless. He states he drinks alcohol, uses cocaine, and uses marijuana in an attempt to stay warm. He gave a history of recent events. He states he was in [place] and when his mother 3 months ago, he came to [place]. He states [place] was too cold. He reports being homeless since 2007. Medications and Allergies Allergies Allergy/AdvReac Type Severity Reaction Status Date / Time chlorpromazine HCl Allergy Swelling Verified 04/30/17 09:27 [From Thorazine] haloperidol [From Haldol] Allergy Unknown Verified 09/04/17 16:37 lisinopril Allergy Unknown Verified 09/04/17 16:37 Home Medications Medication Instructions Recorded Confirmed Last Taken Type AtorvaSTATin [Lipitor] 40 mg PO BID 04/30/17 09/04/17 Unknown History Carvedilol [Coreg] 25 mg PO BID 04/30/17 09/04/17 Unknown History Colchicine [Colcrys] 0.6 mg PO BID 04/30/17 09/04/17 Unknown History Tamsulosin [Flomax] 0.4 mg PO QDAY 04/30/17 09/04/17 Unknown History amLODIPine [Norvasc] 10 mg PO DAILY 04/30/17 09/04/17 Unknown History methOCARBAMOL [Robaxin TAB] 500 mg PO BID 04/30/17 09/04/17 Unknown History Active Meds: Active Medications Acetaminophen (Tylenol) 650 mg PO Q4H PRN PRN Reason: Pain MILD(1-3)/Fever >100.5/JAY Last Admin: 09/06/17 20:35 Dose: 650 mg Amlodipine Besylate (Norvasc) 10 mg PO DAILY [facility] Last Admin: 09/07/17 17:15 Dose: 10 mg Atorvastatin Calcium (Lipitor) 40 mg PO QHS COY Bisacodyl (Dulcolax) [address] QDAY PRN PRN Reason: Constipation unrelieved by MOM Carvedilol (Coreg) 25 mg PO BID [facility] Colchicine (Colcrys) 0.6 mg PO QDAY [facility] Enoxaparin Sodium (Lovenox) 40 mg SUB-Q QDAY [facility] Last Admin: 09/07/17 10:05 Dose: 40 mg Levofloxacin/Dextrose (Levaquin 750mg/150ml) 750 mg in 150 mls @ 100 mls/hr IV Q24HR COY PRN Reason: Protocol Last Admin: 09/07/17 10:06 Dose: 100 mls/hr Magnesium Hydroxide (Milk Of Magnesia) 30 ml PO Q4H PRN PRN Reason: Constipation Ondansetron HCl (Zofran) 4 mg IV Q8H PRN PRN Reason: N/V unrelieved by Reglan Sertraline HCl (Zoloft) 50 mg PO QDAY [facility] Tamsulosin HCl (Flomax) 0.4 mg PO QDAY [facility] Zolpidem Tartrate (Ambien) 5 mg PO QHS PRN PRN Reason: Sleep Last Admin: 09/07/17 00:20 Dose: 5 mg Past psychiatric history - Past Medical History Past Medical History: CAD, hypertension, other (gout) Past Surgical History: PTCA - past Psychiatric treatment and history Psych: Depression psychiatric treatment history: He denies a history of bipolar. He states he was given a "happy pill" in the and wants it again. [facility] 2 months ago. [facility] immediately prior to arrival. Unable to gather further history. - Social History Social history: alcohol abuse, other (polysubstance use) Mental Status Exam - Vital signs Last Vital Signs Temp 98.6 F 09/07/17 16:35 Pulse 77 09/07/17 16:35 Resp 20 09/07/17 16:35 BP 182/103 09/07/17 16:35 Pulse Ox 95 09/07/17 16:35 - Exam Narrative exam: perseverative thought process Orientation: time, place, person Affect: depressed, anxious Mood: congruent with affect Thought content: other (no suicidal or homicidal ideation) Thought Process: Circumstantial Perceptions: visual ("dots") Speech: normal rate and pattern Concentration: distractible Motor activity: normal Level of consciousness: alert Memory: Intact Sleep Symptoms: Difficulty Falling Asleep Appetite: increased Interaction: cooperative (self reports short term memory loss. unable to complete MMSE today.) Results Result Diagrams: 09/05/17 04:56 09/05/17 04:56 All other labs normal. Assessment and Plan Assessment and plan: Impression: No suicidal ideation He was discharged from [facility] 09/04/2017 1013 was not renewed on arrival to and not valid currently. major depressive disorder substance use disorder: alcohol use d/o cocaine use d/o cannabis use d/o c/o headache and that he hit his head prior to arrival-Dr. Shankar informed Recommendation: 1013 not valid. We will evaluate in 24 hours to determine if his mental status has changed. Start zoloft 50mg daily for depressive symptoms. -risks and benefits discussed. Monitor for suicidal ideation.
--- NOTE | 2017-09-07 17:41 | Cat Scan Report ---
FINAL REPORT EXAM: CT HEAD/BRAIN WO CON HISTORY: headaches, head trauma TECHNIQUE: CT head without contrast PRIORS: None. FINDINGS: No acute intra-axial or extra-axial hemorrhage is identified. There is no evidence of midline shift or mass effect. The ventricles and sulci are within normal limits. Tracy-white matter differentiation is intact. No acute parenchymal abnormalities seen. Bony calvarium is grossly intact. Visualized portions of the mastoids and paranasal sinuses are unremarkable. IMPRESSION: Negative CT head
[2017-09-07] MEDS: FLOMAX PO SCH (21:24)
[2017-09-07] MEDS: TYLENOL PO PRN (21:24)
[2017-09-07] MEDS: COREG PO SCH (21:24)
[2017-09-08] MEDS: LEVAQUIN 750MG/150ML 750 MG/150 ML BAG IV SCH (09:55)
[2017-09-08] MEDS: LOVENOX SUB-Q SCH (09:55)
[2017-09-08] MEDS: ZOLOFT PO SCH (09:56)
[2017-09-08] MEDS: COREG PO SCH ×2 (09:56→22:24)
[2017-09-08] MEDS: NORVASC PO SCH (09:56)
[2017-09-08] MEDS: COLCRYS PO SCH (09:56)
[2017-09-08] MEDS: TYLENOL PO PRN ×2 (10:31→20:23)
--- NOTE | 2017-09-08 13:09 | Hem/Onc Progress Note ---
Assessment and Plan Awaiting bone marrow biopsy results. Will check CBC in the morning. Subjective Date of service: 09/08/17 Interval history: Patient feels fair. Had his bone marrow biopsy done 2 days ago. Objective - Constitutional Vitals: Last Vital Signs Temp 97.5 F L 09/08/17 04:00 Pulse 62 09/08/17 04:00 Resp 16 09/08/17 04:00 BP 148/84 09/08/17 04:00 Pulse Ox 97 09/08/17 12:44 General appearance: no acute distress Performance status: 3-limited selfcare - Neck Neck: supple - Respiratory Respiratory effort: Positive: normal Respiratory: bilateral: CTA - Cardiovascular Rhythm: regular Extremities: No edema (scaling left hand)
--- NOTE | 2017-09-08 13:49 | Progress Note ---
Assessment and Plan Assessment and plan: Patient is 56-year-old man with a history major depression disorder, dyslipidemia, hypertension, BPH and gout who was sent from [place] psych facility to [facility] ED with shortness of breath and productive green cough. Patient was in [facility] facility under 1013 dated 08/31/2017 for suicide ideation. Patient denies suicidal ideation at this time. Patient states he is sad because his mother 3 months ago. Now, he was Diagnosed with pneumonia and admitted to this hospital. However, Chest x-ray shows no significant acute chest process or interval change. Patient does have chronic leukocytosis even when he left [facility] in April 2017. -Acute bronchitis, without pneumonia on chest x-ray: De-escalate antibiotics -Major depression disorder with suicide ideation: Consulted mental health/psych , ?need updated 1013 -Hypertension: low salt diet, treat with antihypertensives. -Chronic leukocytosis: continue to monitor, consult Hematology instead of ID since this is chronic==>bone marrow bx done ruperto Ovalle NP from mental health department, he believes patient was discharged from [place] 1013, he will investigate spoke with Vasquez again, patient will be seen by WILLARD Hallman today If cleared from mental health standpoint, he can be discharged tomorrow, bone marrow can be followed up as outpatient. 09/08/17: Patient with SI this morning, will re-institute 1013 with sitter, I did notify Vasquez LAMAR History Interval history: Patient was seen and examined. Follow-up on current diagnosis/shortness of breath and productive green cough. Overnight uneventful. Patient denies any chest pain, nausea/vomiting or severe headaches. Imaging, nursing note, chart, labs and old chart reviewed. Discussed with patient. Patient states, "i want to hurt myself sometimes". He admits to SI this morning. Hospitalist Physical - Physical exam Narrative exam: GEN: WDWN, NAD, AWAKE, ALERT, ORIENTATED 3 HEENT: NCAT, EOMI, PERRL, OP Clear NECK: supple, no adenopathy, no thyromegaly, no JVD CVS/HEART: RRR, NORMAL S1S2, NO JVD, pulses present bilaterally CHEST/LUNGS: CTA B, Symmetrical chest expansion, good air entry bilaterally GI/Abdomen: soft, NTND, good bowel sounds, no guarding or rebound /Bladder: no suprapubic tenderness, no CVA or paraspinal tenderness EXT/Skin: no c/c/e, no obvious rash MSK: FROM x 4 Neuro: CN 2-12 grossly intact, no new focal deficits Psych: Withdrawn - Constitutional Vitals: Temp Pulse Resp BP Pulse Ox 97.5 F L 62 16 148/84 97 09/08/17 04:00 09/08/17 04:00 09/08/17 04:00 09/08/17 04:00 09/08/17 12:44 Results - Labs CBC & Chem 7: 09/05/17 04:56 09/05/17 04:56 Labs: Laboratory Last Values WBC 16.3 K/mm3 (4.5-11.0) H 09/05/17 04:56 RBC 3.70 M/mm3 (3.65-5.03) 09/05/17 04:56 Hgb 9.7 gm/dl (11.8-15.2) L 09/05/17 04:56 Hct 31.0 % (35.5-45.6) L 09/05/17 04:56 MCV 84 fl (84-94) 09/05/17 04:56 MCH 26 pg (28-32) L 09/05/17 04:56 MCHC 31 % (32-34) L 09/05/17 04:56 RDW 16.5 % (13.2-15.2) H 09/05/17 04:56 Plt Count 270 K/mm3 (140-440) 09/05/17 04:56 Add Manual Diff Complete 09/05/17 04:56 Total Counted 100 09/05/17 04:56 Seg Neuts % (Manual) 48.0 % (40.0-70.0) 09/05/17 04:56 Band Neutrophils % 28.0 % 09/05/17 04:56 Lymphocytes % (Manual) 9.0 % (13.4-35.0) L 09/05/17 04:56 Reactive Lymphs % (Man) 0 % 09/05/17 04:56 Monocytes % (Manual) 6.0 % (0.0-7.3) 09/05/17 04:56 Eosinophils % (Manual) 1.0 % (0.0-4.3) 09/05/17 04:56 Basophils % (Manual) 1.0 % (0.0-1.8) 09/05/17 04:56 Metamyelocytes % 5.0 % 09/05/17 04:56 Myelocytes % 0 % 09/05/17 04:56 Promyelocytes % 2.0 % 09/05/17 04:56 Blast Cells % 0 % 09/05/17 04:56 Nucleated RBC % Not Reportable 09/05/17 04:56 Seg Neutrophils # Man 7.8 K/mm3 (1.8-7.7) H 09/05/17 04:56 Band Neutrophils # 4.6 K/mm3 09/05/17 04:56 Lymphocytes # (Manual) 1.5 K/mm3 (1.2-5.4) 09/05/17 04:56 Abs React Lymphs (Man) 0.0 K/mm3 09/05/17 04:56 Monocytes # (Manual) 1.0 K/mm3 (0.0-0.8) H 09/05/17 04:56 Eosinophils # (Manual) 0.2 K/mm3 (0.0-0.4) 09/05/17 04:56 Basophils # (Manual) 0.2 K/mm3 (0.0-0.1) H 09/05/17 04:56 Metamyelocytes # 0.8 K/mm3 09/05/17 04:56 Myelocytes # 0.0 K/mm3 09/05/17 04:56 Promyelocytes # 0.3 K/mm3 09/05/17 04:56 Blast Cells # 0.0 K/mm3 09/05/17 04:56 WBC Morphology Not Reportable 09/05/17 04:56 Hypersegmented Neuts Not Reportable 09/05/17 04:56 Hyposegmented Neuts Not Reportable 09/05/17 04:56 Hypogranular Neuts Not Reportable 09/05/17 04:56 Smudge Cells Not Reportable 09/05/17 04:56 Toxic Granulation Not Reportable 09/05/17 04:56 Toxic Vacuolation Not Reportable 09/05/17 04:56 Dohle Bodies Not Reportable 09/05/17 04:56 Pelger-Huet Anomaly Not Reportable 09/05/17 04:56 Archana Rods Not Reportable 09/05/17 04:56 Platelet Estimate Appears normal 09/05/17 04:56 Clumped Platelets Not Reportable 09/05/17 04:56 Plt Clumps, EDTA Not Reportable 09/05/17 04:56 Large Platelets Not Reportable 09/05/17 04:56 Giant Platelets Not Reportable 09/05/17 04:56 Platelet Satelliting Not Reportable 09/05/17 04:56 Plt Morphology Comment Not Reportable 09/05/17 04:56 RBC Morphology Not Reportable 09/05/17 04:56 Dimorphic RBCs Not Reportable 09/05/17 04:56 Polychromasia Not Reportable 09/05/17 04:56 Hypochromasia Rare 09/05/17 04:56 Poikilocytosis Not Reportable 09/05/17 04:56 Anisocytosis 1+ 09/05/17 04:56 Microcytosis Not Reportable 09/05/17 04:56 Macrocytosis Not Reportable 09/05/17 04:56 Spherocytes Not Reportable 09/05/17 04:56 Pappenheimer Bodies Not Reportable 09/05/17 04:56 Sickle Cells Not Reportable 09/05/17 04:56 Target Cells Not Reportable 09/05/17 04:56 Tear Drop Cells Rare 09/05/17 04:56 Ovalocytes Not Reportable 09/05/17 04:56 Stomatocytes Few 09/05/17 04:56 Helmet Cells Not Reportable 09/05/17 04:56 Caceres-[place] Bodies Not Reportable 09/05/17 04:56 [place] Rings Not Reportable 09/05/17 04:56 [place] Cells Not Reportable 09/05/17 04:56 Bite Cells Not Reportable 09/05/17 04:56 Crenated Cell Not Reportable 09/05/17 04:56 Elliptocytes Not Reportable 09/05/17 04:56 Acanthocytes (Spur) Not Reportable 09/05/17 04:56 Rouleaux Not Reportable 09/05/17 04:56 Hemoglobin C Crystals Not Reportable 09/05/17 04:56 Schistocytes Not Reportable 09/05/17 04:56 Malaria parasites Not Reportable 09/05/17 04:56 Elroy Bodies Not Reportable 09/05/17 04:56 Hem Pathologist Commnt No 09/05/17 04:56 PT 14.0 Sec. (12.2-14.9) 09/06/17 10:16 INR 1.03 (0.87-1.13) 09/06/17 10:16 APTT 34.7 Sec. (24.2-36.6) 09/06/17 10:16 Sodium 142 mmol/L (137-145) 09/05/17 04:56 Potassium 3.8 mmol/L (3.6-5.0) 09/05/17 04:56 Chloride 102.5 mmol/L (98-107) 09/05/17 04:56 Carbon Dioxide 24 mmol/L (22-30) 09/05/17 04:56 Anion Gap 19 mmol/L 09/05/17 04:56 BUN 20 mg/dL (9-20) 09/05/17 04:56 Creatinine 1.3 mg/dL (0.8-1.5) 09/05/17 04:56 Estimated GFR > 60 ml/min 09/05/17 04:56 BUN/Creatinine Ratio 15 % 09/05/17 04:56 Glucose 129 mg/dL (75-100) H 09/05/17 04:56 POC Glucose 126 (70-105) H 09/05/17 23:52 Calcium 8.4 mg/dL (8.4-10.2) 09/05/17 04:56 Troponin T TNR 09/04/17 16:52
--- NOTE | 2017-09-08 18:01 | Progress Note ---
Subjective - Reason for Consult Consult date: 09/08/17 Reason for consult: follow up - Chief Complaint Chief complaint: "I want to go to the [facility]." Mr. Alonso is 56 years old male seen for psychiatric follow up on the medical floor. He was sent to the ER for abnormal EKG and shortness of breath and chest pain from [facility] inpatient facility. He also reports he fell back and hit his head from a standing position. He states he has been "losing memories" since then.He reports seeing dots, and states that is new for him. His report of fall was addressed by the medical team. He presented to [facility] for suicidal ideation and required detox from alcohol. He was discharged from there 09/04/2017. He currently denies suicidal ideation. He denies homicidal ideation. He states he has not had suicidal ideation since [facility]. No auditory hallucinations reported. He states his goal is to have a stable place to live or at least stay for the present. He reports being homeless. He states he drinks alcohol, uses cocaine, and uses marijuana in an attempt to stay warm. He gave a history of recent events. He states he was in [place] and when his mother 3 months ago, he came to [place]. He states [place] was too cold. He reports being homeless since 2007. His mental status is unchanged. He wants to go to the [facility] for psychiatric treatment. Mental Status Exam - Vital signs Last Vital Signs Temp 97.7 F 09/08/17 15:00 Pulse 72 09/08/17 15:00 Resp 20 09/08/17 15:00 BP 167/88 09/08/17 15:00 Pulse Ox 99 09/08/17 15:00 - Exam Narrative exam: remains perseverative about his belongings Orientation: time, place, person Affect: depressed, anxious Mood: congruent with affect Thought content: other (no suicidal or homicidal ideation) Thought Process: Circumstantial Perceptions: visual ("dots") Speech: normal rate and pattern Concentration: focused Motor activity: normal Level of consciousness: alert Memory: Intact Sleep Symptoms: Difficulty Falling Asleep Appetite: increased Interaction: cooperative Assessment and Plan Impression: No suicidal ideation. He maintains denial of suicidal ideation. He endorses depression. He was discharged from [facility] 09/04/2017 1013 was not renewed on arrival to and not valid currently. major depressive disorder substance use disorder: alcohol use d/o cocaine use d/o cannabis use d/o Recommendation: 1013 is not recommended. He is appropriate for [facility], partial hospitalization program. Continue zoloft 50mg daily for depressive symptoms. -risks and benefits discussed. Monitor for suicidal ideation.
[2017-09-08] MEDS: FLOMAX PO SCH (22:24)
[2017-09-09] MEDS: TYLENOL PO PRN ×3 (02:49→13:58)
[2017-09-09] MEDS: AMBIEN PO PRN ×2 (02:53→21:09)
[2017-09-09 06:12] LABS: Hemoglobin 10.6 gm/dl (11.8-15.2); Mean Corpuscular HGB Conc 32 % (32-34); Mean Corpuscular Hemoglobin 27 pg (28-32); Mean Corpuscular Volume 83 fl (84-94); Platelet Count 291 K/mm3 (140-440); Red Blood Count 3.97 M/mm3 (3.65-5.03); Red Cell Distribution Width 16.2 % (13.2-15.2); White Blood Count 19.6 K/mm3 (4.5-11.0)
[2017-09-09 06:48] LABS: Basophils % (Manual) 0 % (0.0-1.8); Blastocytes % (Manual) 0 %
[2017-09-09 06:49] LABS: Diff Status Complete; Platelet Estimate Consistent w Auto
--- NOTE | 2017-09-09 09:40 | Query-Infection ---
Deaedilia Bueno Raad Date:___09/09/17 Retail Store Manager/CDS:____Rohit Phone#:__[phone] Exercise your independent professional judgment when responding to this query. Questions asked do not imply a particular answer is desired or expected. We greatly appreciate your clarification on this issue. Clinical Documentation States: 56 year old male was admitted on 09/04/17 The progress note (Dr. Shankar 09/08/17) states " Patient is 56-year-old man with a history major depression disorder, dyslipidemia, hypertension, BPH and gout who was sent from [facility] to [facility] ED with shortness of breath and productive green cough Acute bronchitis, without pneumonia on chest x-ray: De-escalate antibiotics " WBC: 16.3 Respiratory rate: 22 Medications: IV levofloxacin Clinical findings show: (please check applicable parameters) Infection, known /suspected, with some of the following indicators; Specify the infection: 3 General parameters [ ] Fever (core temp >38.30C or 100.40F) [ ] Hypothermia (core temp <36C) [ ] Heart rate >90 bpm [ x] Tachypnea: >20 bpm or pCO2 < 32 mmHg [ ] Altered mental status [ ] Significant edema / +ve fluid balance (>20 ml/kg 24 h) [ ] Hyperglycemia (Bl. glucose >110 mg/dl) w/o diabetes Inflammatory parameters [x ] Leukocytosis (white blood cell count >12,000/l) [ ] Leukopenia (white blood cell count <4,000/l) [ ] Bandemia (immature WBC > 10%) [ ] Leucocyte Left Shift [ ] Plasma procalcitonin>2 SD above the normal value Hemodynamic and tissue perfusion parameters [ ] Arterial hypotension(SBP <90 mmHg, MAP <70 mmHg,or a SBP drop >40 mmHg in adults) [ ] Hyperlactatemia (>3 mmol/l) [ ] Anion Gap (> 11mEG/l) [ ] Decreased capillary refill or mottling Organ dysfunction parameters [ ] Arterial hypoxemia (PaO2/FIO2 <300) [ ] Creatinine increase =0.5 mg/dl [ ] Acute oliguria (urine output <0.5 ml | kg |h or 45 mM/l for at least 2 hrs) [ ] Coagulation abnormalities (INR >1.5 or activated partial thromboplastin time >60 s) [ ] Ileus (absent stef wel sounds) [ ] Thrombocytopenia (platelet count <100,000/l) [ ] Hyperbilirubinemia (plasma total bilirubin >4 mg/dl) According to the clinical indications above, can Bacteremia be further specified? If so, please indicate below and in your Progress Notes and/ or Discharge Summary. Indicate if the condition was present on admission. PHYSICIAN RESPONSE: [x ] Sepsis [ ] Severe Sepsis [ ] Septic Shock [ ] Septicemia [ ] Sepsis now resolved [ ] SIRS due to non-infectious cause with organ dysfunction [ ] SIRS due to non-infectious cause without organ dysfunction [ ] Other: [ ] Comment/Explanation: Present on Admission: [ x] Yes (Y) [ ] Clinically undeterminable (W) [ ] No (N) [ ] Ruled Out Please also document response in your Progress Notes and/or Discharge Summary and indicate if the condition was present on admission Notes: SIRS/ SIRS WITH ORGAN DYSFUNCTION Systemic inflammatory response syndrome (SIRS) generally refers to the systemic response to trauma/allred or other insult such as Acute Myocardial Infarction, Acute Pancreatitis, and Major Surgery with symptoms including fever, tachycardia , tachypnea, and leukocytosis (1). BACTEREMIA Presence of viable bacteria in the circulating blood (2). This term is reserved for patients that do not manifest above SIRS response. SEPTICEMIA Generally refers to a systemic disease associated with the presence of pathological microorganisms or toxins in the blood, which can include bacteria, viruses, fungi or other organisms (1). SEPSIS Generally refers to SIRS due infection (1). SEVERE SEPSIS Generally refers to sepsis associated with acute organ dysfunction (1). SEPTIC SHOCK Generally refers to circulatory failure associated with severe sepsis (2), and defined as hypotension or hypoperfusion despite adequate fluid resuscitation (1 hour) (3). REFERENCES: 1. [employer]/Society of Critical Care Medicine Consensus Conference. Definitions for sepsis and organ failure and guidelines for the use of innovative therapies in sepsis. Critical Care Med 1992;20:864 - 74. 2. Hernando coburn MM, Alicia CABELLO, Matti RELL, Emigdio E, Kelton D, Mj D, Rowe J, Denio SM , Edwin JL, Plevna G; International Sepsis Definitions Conference. 2001 SCCM/ESICM/ACCP/ATS/SIS International Sepsis Definitions Conference. Intensive Care Med. 2002;29(4):530-8. Epub 2002Dec 25. Review. PubMed PMID:[id number] 3. ICD-9-CM Official Guidelines for Coding and Reporting 4. Medscape Drugs, Diseases and Procedures references 5. Harrisons Textbook of Internal Medicine. 18th Edition MTDD
[2017-09-09] MEDS: LEVAQUIN 750MG/150ML 750 MG/150 ML BAG IV SCH (11:15)
[2017-09-09] MEDS: NORVASC PO SCH (11:19)
[2017-09-09] MEDS: LOVENOX SUB-Q SCH ×2 (11:19→11:32)
[2017-09-09] MEDS: ZOLOFT PO SCH (11:19)
[2017-09-09] MEDS: COLCRYS PO SCH ×2 (11:19→21:09)
[2017-09-09] MEDS: COREG PO SCH ×2 (11:20→21:09)
--- NOTE | 2017-09-09 13:23 | Progress Note ---
Subjective - Reason for Consult Consult date: 09/09/17 Reason for consult: Psychiatry Follow-up - Chief Complaint Chief complaint: "How are you" Patient is 56 years old male who was sent from [facility] for evaluation of an abnormal EKG and shortness of breath. Today patient is calm and cooperative during the assessment. He stated that he isn't suicidal. His major concern is pain in his toe. The patient stated that he has a hx of gout. He stated that he would like to attend [facility] at [facility] once discharged. He denies SI/HI's and AVH's. He denies sleep disturbance. He denies any side effects of his medication. He denies seeing dots today. Mental Status Exam - Vital signs Last Vital Signs Temp 75 F L 09/09/17 12:08 Pulse 75 09/09/17 12:08 Resp 20 09/09/17 12:08 BP 176/94 09/09/17 12:08 Pulse Ox 96 09/09/17 12:08 - Exam Narrative exam: MSE: Appearance: calm, cooperative Behavior: regular eye contact Speech: regular rate and tone Mood: "okay" Affect: congruent to mood Thought Process: logical Thought Content: denies SI/HI's and AVH's Motor Activity: sitting up in bed Cognition: A/O x3 Insight: appropriate Judgment: appropriate Assessment and Plan Impression: MDD. Alcohol Use DO. Substance use DO (cocaine, marijuana). Today patient is calm and cooperative during the assessment. Patient is no threat to self. Recommendation: Rescind 1013. Continue Zoloft 50 mg PO daily for depression. Recommend [facility] once discharged, patient agreed. Obstetrics Technician involvement, patient is homeless.
--- NOTE | 2017-09-09 16:05 | Progress Note ---
Assessment and Plan Assessment and plan: Patient is 56-year-old man with a history major depression disorder, dyslipidemia, hypertension, BPH and gout who was sent from [place] psych facility to [facility] ED with shortness of breath and productive green cough. Patient was in [facility] facility under 1013 dated 08/31/2017 for suicide ideation. Patient denies suicidal ideation at this time. Patient states he is sad because his mother 3 months ago. Now, he was Diagnosed with pneumonia and admitted to this hospital. However, Chest x-ray shows no significant acute chest process or interval change. Patient does have chronic leukocytosis even when he left [facility] in April 2017. -Acute bronchitis with sepsis, poa, without pneumonia on chest x-ray: De- escalate antibiotics -Major depression disorder with suicide ideation: Consulted mental health/psych , ?need updated 1013 -Hypertension: low salt diet, treat with antihypertensives. -Chronic leukocytosis: continue to monitor, consult Hematology instead of ID since this is chronic==>bone marrow bx done ruperto Ovalle NP from mental health department, he believes patient was discharged from [place] 1013, he will investigate spoke with Vasquez again, patient will be seen by WILLARD Hallman today If cleared from mental health standpoint, he can be discharged tomorrow, bone marrow can be followed up as outpatient. 09/08/17: Patient with SI this morning, will re-institute 1013 with sitter, I did notify Vasquez LAMAR : Mental health Nurse Practitioner came and wanted to re-scind the 1013, d/w Vasquez, pt is not suicidal. His main issue is left ankle Gout, will restarted his colchine bid, add dose on indomethacin tonight, rescind 1013 and hopefully, d/c tomorrow History Interval history: Patient was seen and examined. Follow-up on current diagnosis/shortness of breath and productive green cough. Overnight uneventful. Patient denies any chest pain, nausea/vomiting or severe headaches. Imaging, nursing note, chart, labs and old chart reviewed. Discussed with patient. Patient states, "i want to hurt myself sometimes". He admits to SI this morning. Hospitalist Physical - Physical exam Narrative exam: GEN: WDWN, NAD, AWAKE, ALERT, ORIENTATED 3 HEENT: NCAT, EOMI, PERRL, OP Clear NECK: supple, no adenopathy, no thyromegaly, no JVD CVS/HEART: RRR, NORMAL S1S2, NO JVD, pulses present bilaterally CHEST/LUNGS: CTA B, Symmetrical chest expansion, good air entry bilaterally GI/Abdomen: soft, NTND, good bowel sounds, no guarding or rebound /Bladder: no suprapubic tenderness, no CVA or paraspinal tenderness EXT/Skin: no c/c/e, no obvious rash MSK: FROM x 4 Neuro: CN 2-12 grossly intact, no new focal deficits Psych: Withdrawn - Constitutional Vitals: Temp Pulse Resp BP Pulse Ox 75 F L 75 20 176/94 96 09/09/17 12:08 09/09/17 12:08 09/09/17 12:08 09/09/17 12:08 09/09/17 12:08 Results - Labs CBC & Chem 7: 09/09/17 05:11 09/05/17 04:56 Labs: Laboratory Last Values WBC 19.6 K/mm3 (4.5-11.0) H 09/09/17 05:11 RBC 3.97 M/mm3 (3.65-5.03) 09/09/17 05:11 Hgb 10.6 gm/dl (11.8-15.2) L 09/09/17 05:11 Hct 33.0 % (35.5-45.6) L 09/09/17 05:11 MCV 83 fl (84-94) L 09/09/17 05:11 MCH 27 pg (28-32) L 09/09/17 05:11 MCHC 32 % (32-34) 09/09/17 05:11 RDW 16.2 % (13.2-15.2) H 09/09/17 05:11 Plt Count 291 K/mm3 (140-440) 09/09/17 05:11 Add Manual Diff Complete 09/09/17 05:11 Total Counted 100 09/09/17 05:11 Seg Neuts % (Manual) 67.0 % (40.0-70.0) 09/09/17 05:11 Band Neutrophils % 0 % 09/09/17 05:11 Lymphocytes % (Manual) 14.0 % (13.4-35.0) 09/09/17 05:11 Reactive Lymphs % (Man) 0 % 09/09/17 05:11 Monocytes % (Manual) 8.0 % (0.0-7.3) H 09/09/17 05:11 Eosinophils % (Manual) 2.0 % (0.0-4.3) 09/09/17 05:11 Basophils % (Manual) 0 % (0.0-1.8) 09/09/17 05:11 Metamyelocytes % 0 % 09/09/17 05:11 Myelocytes % 9.0 % 09/09/17 05:11 Promyelocytes % 0 % 09/09/17 05:11 Blast Cells % 0 % 09/09/17 05:11 Nucleated RBC % Not Reportable 09/09/17 05:11 Seg Neutrophils # Man 13.1 K/mm3 (1.8-7.7) H 09/09/17 05:11 Band Neutrophils # 0.0 K/mm3 09/09/17 05:11 Lymphocytes # (Manual) 2.7 K/mm3 (1.2-5.4) 09/09/17 05:11 Abs React Lymphs (Man) 0.0 K/mm3 09/09/17 05:11 Monocytes # (Manual) 1.6 K/mm3 (0.0-0.8) H 09/09/17 05:11 Eosinophils # (Manual) 0.4 K/mm3 (0.0-0.4) 09/09/17 05:11 Basophils # (Manual) 0.0 K/mm3 (0.0-0.1) 09/09/17 05:11 Metamyelocytes # 0.0 K/mm3 09/09/17 05:11 Myelocytes # 1.8 K/mm3 09/09/17 05:11 Promyelocytes # 0.0 K/mm3 09/09/17 05:11 Blast Cells # 0.0 K/mm3 09/09/17 05:11 WBC Morphology Not Reportable 09/09/17 05:11 Hypersegmented Neuts Not Reportable 09/09/17 05:11 Hyposegmented Neuts Not Reportable 09/09/17 05:11 Hypogranular Neuts Not Reportable 09/09/17 05:11 Smudge Cells Not Reportable 09/09/17 05:11 Toxic Granulation Not Reportable 09/09/17 05:11 Toxic Vacuolation Not Reportable 09/09/17 05:11 Dohle Bodies Not Reportable 09/09/17 05:11 Pelger-Huet Anomaly Not Reportable 09/09/17 05:11 Archana Rods Not Reportable 09/09/17 05:11 Platelet Estimate Consistent w auto 09/09/17 05:11 Clumped Platelets Not Reportable 09/09/17 05:11 Plt Clumps, EDTA Not Reportable 09/09/17 05:11 Large Platelets Not Reportable 09/09/17 05:11 Giant Platelets Not Reportable 09/09/17 05:11 Platelet Satelliting Not Reportable 09/09/17 05:11 Plt Morphology Comment Not Reportable 09/09/17 05:11 RBC Morphology Not Reportable 09/09/17 05:11 Dimorphic RBCs Not Reportable 09/09/17 05:11 Polychromasia Not Reportable 09/09/17 05:11 Hypochromasia Not Reportable 09/09/17 05:11 Poikilocytosis Not Reportable 09/09/17 05:11 Anisocytosis Not Reportable 09/09/17 05:11 Microcytosis Not Reportable 09/09/17 05:11 Macrocytosis Not Reportable 09/09/17 05:11 Spherocytes Not Reportable 09/09/17 05:11 Pappenheimer Bodies Not Reportable 09/09/17 05:11 Sickle Cells Not Reportable 09/09/17 05:11 Target Cells Not Reportable 09/09/17 05:11 Tear Drop Cells Not Reportable 09/09/17 05:11 Ovalocytes Not Reportable 09/09/17 05:11 Stomatocytes Few 09/05/17 04:56 Helmet Cells Not Reportable 09/09/17 05:11 Caceres-Esparto Bodies Not Reportable 09/09/17 05:11 [place] Rings Not Reportable 09/09/17 05:11 [place] Cells Not Reportable 09/09/17 05:11 Bite Cells Not Reportable 09/09/17 05:11 Crenated Cell Not Reportable 09/09/17 05:11 Elliptocytes Not Reportable 09/09/17 05:11 Acanthocytes (Spur) Not Reportable 09/09/17 05:11 Rouleaux Not Reportable 09/09/17 05:11 Hemoglobin C Crystals Not Reportable 09/09/17 05:11 Schistocytes Not Reportable 09/09/17 05:11 Malaria parasites Not Reportable 09/09/17 05:11 Elroy Bodies Not Reportable 09/09/17 05:11 Hem Pathologist Commnt No 09/09/17 05:11 PT 14.0 Sec. (12.2-14.9) 09/06/17 10:16 INR 1.03 (0.87-1.13) 09/06/17 10:16 APTT 34.7 Sec. (24.2-36.6) 09/06/17 10:16 Sodium 142 mmol/L (137-145) 09/05/17 04:56 Potassium 3.8 mmol/L (3.6-5.0) 09/05/17 04:56 Chloride 102.5 mmol/L (98-107) 09/05/17 04:56 Carbon Dioxide 24 mmol/L (22-30) 09/05/17 04:56 Anion Gap 19 mmol/L 09/05/17 04:56 BUN 20 mg/dL (9-20) 09/05/17 04:56 Creatinine 1.3 mg/dL (0.8-1.5) 09/05/17 04:56 Estimated GFR > 60 ml/min 09/05/17 04:56 BUN/Creatinine Ratio 15 % 09/05/17 04:56 Glucose 129 mg/dL (75-100) H 09/05/17 04:56 POC Glucose 126 (70-105) H 09/05/17 23:52 Calcium 8.4 mg/dL (8.4-10.2) 09/05/17 04:56 Troponin T TNR 09/04/17 16:52
[2017-09-09] MEDS: ROBAXIN PO SCH ×2 (19:11→22:59)
[2017-09-09] MEDS: FLOMAX PO SCH (21:09)
[2017-09-09] MEDS ORDERED: INDOCIN PO NR (22:00)
[2017-09-10 06:16] LABS: Hematocrit 33.6 % (35.5-45.6); Hemoglobin 10.6 gm/dl (11.8-15.2); Mean Corpuscular HGB Conc 32 % (32-34); Mean Corpuscular Volume 82 fl (84-94); Platelet Count 318 K/mm3 (140-440)
[2017-09-10 06:27] LABS: Calcium 9.2 mg/dL (8.4-10.2); Chloride 100.7 mmol/L (98-107); Potassium 4.1 mmol/L (3.6-5.0)
[2017-09-10 06:34] LABS: Mean Corpuscular Hemoglobin 26 pg (28-32); White Blood Count 20.2 K/mm3 (4.5-11.0)
--- NOTE | 2017-09-10 09:11 | Progress Note ---
Subjective - Reason for Consult Consult date: 09/10/17 Reason for consult: Psychiatry Follow-up - Chief Complaint Chief complaint: "Thomas" Patient is 56 years old male who was sent from [facility] for evaluation of an abnormal EKG and shortness of breath. Today patient is calm and cooperative during the assessment. He rate his pain in his toe 3/10, with 10 being the worse. He stated that he look forward to being discharged to [facility] at [facility]. He denies SI/HI's and AVH's. He denies any side effects of his medication. Mental Status Exam - Vital signs Last Vital Signs Temp 98.2 F 09/10/17 07:53 Pulse 63 09/10/17 07:53 Resp 20 09/10/17 07:53 BP 138/76 09/10/17 07:53 Pulse Ox 97 09/10/17 07:53 - Exam Narrative exam: MSE: Appearance: calm, cooperative Behavior: regular eye contact Speech: regular rate and tone Mood: "okay" Affect: congruent to mood Thought Process: logical Thought Content: denies SI/HI's and AVH's Motor Activity: sitting up in bed Cognition: A/O x3 Insight: appropriate Judgment: appropriate Assessment and Plan Impression: MDD. Alcohol Use DO. Substance use DO (cocaine, marijuana). Today patient is calm and cooperative during the assessment. Patient is no threat to self. Recommendation: Continue Zoloft 50 mg PO daily for depression. Recommend [facility] once discharged, patient agreed. Captain Room Service involvement, patient is homeless.
[2017-09-10] MEDS: NORVASC PO SCH (09:48)
[2017-09-10] MEDS: LOVENOX SUB-Q SCH (09:48)
[2017-09-10] MEDS: COREG PO SCH (09:48)
[2017-09-10] MEDS: ROBAXIN PO SCH (09:48)
[2017-09-10] MEDS: COLCRYS PO SCH (09:48)
[2017-09-10] MEDS: ZOLOFT PO SCH (09:48)
[2017-09-10] MEDS ORDERED: LEVAQUIN PO SCH (10:00)
[2017-09-10] MEDS ORDERED: PREVNAR 13 IM ONE (12:00)
[2017-09-10] MEDS ORDERED: Fluarix Quad 2017-2018(36 MOS+ IM ONE (12:00)
[2017-09-10 12:24] VITALS: BP 135/71
--- NOTE | 2017-09-10 12:24 | Progress Note ---
Assessment and Plan Assessment and plan: Patient is 56-year-old man with a history major depression disorder, dyslipidemia, hypertension, BPH and gout who was sent from [place] psych facility to [facility] ED with shortness of breath and productive green cough. Patient was in [facility] facility under 1013 dated 08/31/2017 for suicide ideation. Patient denies suicidal ideation at this time. Patient states he is sad because his mother 3 months ago. Now, he was Diagnosed with pneumonia and admitted to this hospital. However, Chest x-ray shows no significant acute chest process or interval change. Patient does have chronic leukocytosis even when he left AMA in April 2017. -Acute bronchitis with sepsis, poa, without pneumonia on chest x-ray: De- escalate antibiotics -Major depression disorder with suicide ideation: Consulted mental health/psych , ?need updated 1013 -Hypertension: low salt diet, treat with antihypertensives. -Chronic leukocytosis: continue to monitor, consult Hematology instead of ID since this is chronic==>bone marrow bx done ruperto Ovalle NP from mental health department, he believes patient was discharged from [facility] 1013, he will investigate spoke with Vasquez again, patient will be seen by WILLARD Hallman today If cleared from mental health standpoint, he can be discharged tomorrow, bone marrow can be followed up as outpatient. 09/08/17: Patient with SI this morning, will re-institute 1013 with sitter, I did notify Vasquez LAAMR : Mental health Nurse Practitioner came and wanted to re-scind the 1013, d/w Vasquez, pt is not suicidal. His main issue is left ankle Gout, will restarted his colchine bid, add dose on indomethacin tonight, rescind 1013 and hopefully, d/c tomorrow 09/10/17: NO si/hi. The left ankle pains are improved, he is able to bear weight on it. will d/c with medrol dose pack History Interval history: Patient was seen and examined. Follow-up on current diagnosis/shortness of breath and productive green cough. Overnight uneventful. Patient denies any chest pain, nausea/vomiting or severe headaches. Imaging, nursing note, chart, labs and old chart reviewed. Discussed with patient. Patient states, "i want to hurt myself sometimes". He admits to SI this morning. Hospitalist Physical - Physical exam Narrative exam: GEN: WDWN, NAD, AWAKE, ALERT, ORIENTATED 3 HEENT: NCAT, EOMI, PERRL, OP Clear NECK: supple, no adenopathy, no thyromegaly, no JVD CVS/HEART: RRR, NORMAL S1S2, NO JVD, pulses present bilaterally CHEST/LUNGS: CTA B, Symmetrical chest expansion, good air entry bilaterally GI/Abdomen: soft, NTND, good bowel sounds, no guarding or rebound /Bladder: no suprapubic tenderness, no CVA or paraspinal tenderness EXT/Skin: no c/c/e, no obvious rash MSK: FROM x 4 Neuro: CN 2-12 grossly intact, no new focal deficits Psych: Withdrawn - Constitutional Vitals: Temp Pulse Resp BP Pulse Ox 98.2 F 63 20 138/76 97 09/10/17 07:53 09/10/17 10:00 09/10/17 10:00 09/10/17 09:48 09/10/17 10:00 Results - Labs CBC & Chem 7: 09/10/17 05:19 09/10/17 05:19 Labs: Laboratory Last Values WBC 20.2 K/mm3 (4.5-11.0) H 09/10/17 05:19 RBC 4.10 M/mm3 (3.65-5.03) 09/10/17 05:19 Hgb 10.6 gm/dl (11.8-15.2) L 09/10/17 05:19 Hct 33.6 % (35.5-45.6) L 09/10/17 05:19 MCV 82 fl (84-94) L 09/10/17 05:19 MCH 26 pg (28-32) L 09/10/17 05:19 MCHC 32 % (32-34) 09/10/17 05:19 RDW 16.0 % (13.2-15.2) H 09/10/17 05:19 Plt Count 318 K/mm3 (140-440) 09/10/17 05:19 Add Manual Diff Complete 09/09/17 05:11 Total Counted 100 09/09/17 05:11 Seg Neuts % (Manual) 67.0 % (40.0-70.0) 09/09/17 05:11 Band Neutrophils % 0 % 09/09/17 05:11 Lymphocytes % (Manual) 14.0 % (13.4-35.0) 09/09/17 05:11 Reactive Lymphs % (Man) 0 % 09/09/17 05:11 Monocytes % (Manual) 8.0 % (0.0-7.3) H 09/09/17 05:11 Eosinophils % (Manual) 2.0 % (0.0-4.3) 09/09/17 05:11 Basophils % (Manual) 0 % (0.0-1.8) 09/09/17 05:11 Metamyelocytes % 0 % 09/09/17 05:11 Myelocytes % 9.0 % 09/09/17 05:11 Promyelocytes % 0 % 09/09/17 05:11 Blast Cells % 0 % 09/09/17 05:11 Nucleated RBC % Not Reportable 09/09/17 05:11 Seg Neutrophils # Man 13.1 K/mm3 (1.8-7.7) H 09/09/17 05:11 Band Neutrophils # 0.0 K/mm3 09/09/17 05:11 Lymphocytes # (Manual) 2.7 K/mm3 (1.2-5.4) 09/09/17 05:11 Abs React Lymphs (Man) 0.0 K/mm3 09/09/17 05:11 Monocytes # (Manual) 1.6 K/mm3 (0.0-0.8) H 09/09/17 05:11 Eosinophils # (Manual) 0.4 K/mm3 (0.0-0.4) 09/09/17 05:11 Basophils # (Manual) 0.0 K/mm3 (0.0-0.1) 09/09/17 05:11 Metamyelocytes # 0.0 K/mm3 09/09/17 05:11 Myelocytes # 1.8 K/mm3 09/09/17 05:11 Promyelocytes # 0.0 K/mm3 09/09/17 05:11 Blast Cells # 0.0 K/mm3 09/09/17 05:11 WBC Morphology Not Reportable 09/09/17 05:11 Hypersegmented Neuts Not Reportable 09/09/17 05:11 Hyposegmented Neuts Not Reportable 09/09/17 05:11 Hypogranular Neuts Not Reportable 09/09/17 05:11 Smudge Cells Not Reportable 09/09/17 05:11 Toxic Granulation Not Reportable 09/09/17 05:11 Toxic Vacuolation Not Reportable 09/09/17 05:11 Dohle Bodies Not Reportable 09/09/17 05:11 Pelger-Huet Anomaly Not Reportable 09/09/17 05:11 Archana Rods Not Reportable 09/09/17 05:11 Platelet Estimate Consistent w auto 09/09/17 05:11 Clumped Platelets Not Reportable 09/09/17 05:11 Plt Clumps, EDTA Not Reportable 09/09/17 05:11 Large Platelets Not Reportable 09/09/17 05:11 Giant Platelets Not Reportable 09/09/17 05:11 Platelet Satelliting Not Reportable 09/09/17 05:11 Plt Morphology Comment Not Reportable 09/09/17 05:11 RBC Morphology Not Reportable 09/09/17 05:11 Dimorphic RBCs Not Reportable 09/09/17 05:11 Polychromasia Not Reportable 09/09/17 05:11 Hypochromasia Not Reportable 09/09/17 05:11 Poikilocytosis Not Reportable 09/09/17 05:11 Anisocytosis Not Reportable 09/09/17 05:11 Microcytosis Not Reportable 09/09/17 05:11 Macrocytosis Not Reportable 09/09/17 05:11 Spherocytes Not Reportable 09/09/17 05:11 Pappenheimer Bodies Not Reportable 09/09/17 05:11 Sickle Cells Not Reportable 09/09/17 05:11 Target Cells Not Reportable 09/09/17 05:11 Tear Drop Cells Not Reportable 09/09/17 05:11 Ovalocytes Not Reportable 09/09/17 05:11 Stomatocytes Few 09/05/17 04:56 Helmet Cells Not Reportable 09/09/17 05:11 Caceres-Jagual Bodies Not Reportable 09/09/17 05:11 [place] Rings Not Reportable 09/09/17 05:11 Bertram Cells Not Reportable 09/09/17 05:11 Bite Cells Not Reportable 09/09/17 05:11 Crenated Cell Not Reportable 09/09/17 05:11 Elliptocytes Not Reportable 09/09/17 05:11 Acanthocytes (Spur) Not Reportable 09/09/17 05:11 Rouleaux Not Reportable 09/09/17 05:11 Hemoglobin C Crystals Not Reportable 09/09/17 05:11 Schistocytes Not Reportable 09/09/17 05:11 Malaria parasites Not Reportable 09/09/17 05:11 Elroy Bodies Not Reportable 09/09/17 05:11 Hem Pathologist Commnt No 09/09/17 05:11 PT 14.0 Sec. (12.2-14.9) 09/06/17 10:16 INR 1.03 (0.87-1.13) 09/06/17 10:16 APTT 34.7 Sec. (24.2-36.6) 09/06/17 10:16 Sodium 142 mmol/L (137-145) 09/10/17 05:19 Potassium 4.1 mmol/L (3.6-5.0) 09/10/17 05:19 Chloride 100.7 mmol/L (98-107) 09/10/17 05:19 Carbon Dioxide 22 mmol/L (22-30) 09/10/17 05:19 Anion Gap 23 mmol/L 09/10/17 05:19 BUN 28 mg/dL (9-20) H 09/10/17 05:19 Creatinine 1.5 mg/dL (0.8-1.5) 09/10/17 05:19 Estimated GFR 59 ml/min 09/10/17 05:19 BUN/Creatinine Ratio 19 % 09/10/17 05:19 Glucose 109 mg/dL (75-100) H 09/10/17 05:19 POC Glucose 100 (70-105) 09/10/17 08:01 Calcium 9.2 mg/dL (8.4-10.2) 09/10/17 05:19 Troponin T TNR 09/04/17 16:52
--- NOTE | 2017-09-10 12:29 | Discharge Summary ---
Providers - Providers Date of Admission: 09/04/17 22:08 Date of discharge: 09/10/17 Attending physician: ADAM FERRARI 09/05/17 14:35 Consult to Mental Health [CONS] Routine Reason For Exam: Mental disorder, on 101 from [place], [facility] Place consult to:: Dr. Hayes Notified:: yes Was contact made?: Yes If yes, spoke with:: [id number] 09/05/17 14:49 Consult to Physician [CONS] Routine Consulting Provider: NAYELI CODY Reason For Exam: why chronic leukocytosis? Place consult to:: [facility] Notified:: office Phone number called:: [phone] Was contact made?: Yes If yes, spoke with:: rell Time called:: 14:54 Primary care physician: REPERTOIRE MANAGER Hospitalization Condition: Stable Hospital course: Patient is 56-year-old man with a history major depression disorder, dyslipidemia, hypertension, BPH and gout who was sent from [facility] to [facility] ED with shortness of breath and productive green cough. Patient was in [facility] facility under 1013 dated 08/31/2017 for suicide ideation. Patient denies suicidal ideation at this time. Patient states he is sad because his mother 3 months ago. Now, he was Diagnosed with pneumonia and admitted to this hospital. However, Chest x-ray shows no significant acute chest process or interval change. Patient does have chronic leukocytosis even when he left [facility] in April 2017. -Acute bronchitis with sepsis, poa, without pneumonia on chest x-ray: De- escalate antibiotics -Major depression disorder with suicide ideation: Consulted mental health/psych , ?need updated 1012 -Hypertension: low salt diet, treat with antihypertensives. -Chronic leukocytosis: continue to monitor, consult Hematology instead of ID since this is chronic==>bone marrow bx done ruperto Ovalle NP from mental health department, he believes patient was discharged from [facility], he will investigate spoke with Vasquez again, patient will be seen by WILLARD Hallman today If cleared from mental health standpoint, he can be discharged tomorrow, bone marrow can be followed up as outpatient. 09/08/17: Patient with SI this morning, will re-institute 1013 with sitter, I did notify Vasquez LAMAR : Mental health Nurse Practitioner came and wanted to re-scind the 1013, d/w Vasquez, pt is not suicidal. His main issue is left ankle Gout, will restarted his colchine bid, add dose on indomethacin tonight, rescind 1013 and hopefully, d/c tomorrow 09/10/17: NO si/hi. The left ankle pains are improved, he is able to bear weight on it. will d/c with medrol dose pack d/w pathology, bone marrow bx still pending Disposition: DC-01 TO HOME OR SELFCARE Time spent for discharge: 32 minutes Core Measure Documentation - Palliative Care Palliative Care/ Comfort Measures: Not Applicable - Core Measures Any of the following diagnoses?: none - VTE Discharge Requirements Deep Vein Thrombosis/Pulmonary Embolism Present on Admission: No Has pt received <5 days of overlap therapy or INR<2.0: No Anticoagulant overlap therapy prescribed at discharge: No Contraindication No Overlap Therapy order at DC: Not Indicated Exam - Physical Exam Narrative exam: GEN: WDWN, NAD, AWAKE, ALERT, ORIENTATED 3 HEENT: NCAT, EOMI, PERRL, OP Clear NECK: supple, no adenopathy, no thyromegaly, no JVD CVS/HEART: RRR, NORMAL S1S2, NO JVD, pulses present bilaterally CHEST/LUNGS: CTA B, Symmetrical chest expansion, good air entry bilaterally GI/Abdomen: soft, NTND, good bowel sounds, no guarding or rebound /Bladder: no suprapubic tenderness, no CVA or paraspinal tenderness EXT/Skin: no c/c/e, no obvious rash MSK: FROM x 4, left ankle is tenderness and slightly puffy Neuro: CN 2-12 grossly intact, no new focal deficits Psych: Withdrawn - Constitutional Vitals: Temp Pulse Resp BP Pulse Ox 97.4 F L 66 20 135/71 98 09/10/17 11:54 09/10/17 11:54 09/10/17 11:54 09/10/17 11:54 09/10/17 11:54 Plan Activity: other (no strenous activity until cleared by pcp) Diet: low salt Durable Medical Equipment Needed Upon Discharge: Walker-Standard Additional Instructions: Bone marrow bx still pending, see Dr. Cody Follow up with: JIMBO BERTRAND MD [Primary Care Provider] - 3-5 Days NAYELI CODY MD [Staff Physician] - 7 Days Prescriptions: methylPREDNISolone [Medrol Dose Dk] 1 dose PO DAILY #1 pack
--- NOTE | 2017-09-10 17:05 | Hem/Onc Progress Note ---
Assessment and Plan - Patient Problems (1) Pneumonia Status: Acute Plan to address problem: Bone marrow is still pending. He needs outpatient follow up. Discussed with him in detail Follow up information provided. Discussed with discharge nurse who re iterated this to him. He agrees. Subjective Date of service: 09/10/17 Interval history: Met with patient and nurse. He is being discharged. Objective - Constitutional Vitals: Last Vital Signs Temp 97.4 F L 09/10/17 11:54 Pulse 66 09/10/17 11:54 Resp 20 09/10/17 11:54 BP 135/71 09/10/17 11:54 Pulse Ox 98 09/10/17 11:54 Pain Intensity (0-10): denies any pain General appearance: no acute distress - EENT Eyes: PERRL ENT: hearing intact Lymph node exam: bilateral cervical - Respiratory Respiratory effort: Positive: normal Respiratory: bilateral: CTA - Cardiovascular Rhythm: regular - Labs Lab Results: Laboratory Results - last 24 hr 09/10/17 09/10/17 09/10/17 05:19 05:19 08:01 WBC 20.2 H RBC 4.10 Hgb 10.6 L Hct 33.6 L MCV 82 L MCH 26 L MCHC 32 RDW 16.0 H Plt Count 318 Sodium 142 Potassium 4.1 Chloride 100.7 Carbon Dioxide 22 Anion Gap 23 BUN 28 H Creatinine 1.5 Estimated GFR 59 BUN/Creatinine Ratio 19 Glucose 109 H POC Glucose 100 Calcium 9.2
--- NOTE | 2017-09-16 12:38 | Query- General ---
Marquis Bueno Raad Date:____09/16/17 [employer]semblies Supervisor/CDS: Theresa / Chaz Phone#:_[phone] Exercise your independent professional judgment when responding to this query. Questions asked do not imply a particular answer is desired or expected. We greatly appreciate your clarification on this issue. Clinical Documentation States: 56 year old male was admitted on 09/04/17 The discharge summary (Dr. Shankar) states " sent from [facility] facility to [facility] ED with shortness of breath and productive green cough. Now, he was Diagnosed with pneumonia and admitted to this hospital. However, Chest x-ray shows no significant acute chest process or interval change. Acute bronchitis with sepsis, poa, without pneumonia on chest x-ray: De- escalate antibiotics " Given the above clinical scenario can you please provide an appropriate diagnosis based on your knowledge of the patient: PHYSICIAN RESPONSE: [ ] Pneumonia present [ ] Pneumonia not present [ x ] Other (Please specify) ___acute bilateral aspiration pneumonitits, poa____ Present on Admission: [ x] Yes (Y) [ ] Clinically undeterminable (W) [ ]No(N) Please also document response in your Progress Notes and/or Discharge Summary and indicate if the condition was present on admission. [email or web address]
[2017-09-18 13:14] LABS: BCR_ABL 9:22 SCANNED INTO MED REC; CYTOMETRY FIRST MARKER SCANNED INTO MED REC; FLOW CYTOMETRY >16 SCANNED INTO MED REC
== END 2017-09-10 17:01 | disposition home or self-care (01) | DRG 871 ==
LOC: ED 15:00 → 4A 22:08 → UNDODISIN 09-10 14:54
PROVIDERS: ADMIT Internal Medicine; ATTEND Internal Medicine
PROC: 07DR3ZX Extraction of Iliac Bone Marrow, Percutaneous Approach, Diagnostic (ICD-10-PCS; 2017-09-06)
PROC: 3E0234Z Introduction of Serum, Toxoid and Vaccine into Muscle, Percutaneous Approach (ICD-10-PCS; principal; 2017-09-10)
DX: A41.9 Sepsis, unspecified organism (principal); J69.0 Pneumonitis due to inhalation of food and vomit; R45.851 Suicidal ideations; J20.9 Acute bronchitis, unspecified; I10 Essential (primary) hypertension; E78.5 Hyperlipidemia, unspecified; F32.9 Major depressive disorder, single episode, unspecified; N40.0 Benign prostatic hyperplasia without lower urinary tract symptoms; M10.9 Gout, unspecified; F17.200 Nicotine dependence, unspecified, uncomplicated; F14.90 Cocaine use, unspecified, uncomplicated; F12.90 Cannabis use, unspecified, uncomplicated; Z79.899 Other long term (current) drug therapy; I25.2 Old myocardial infarction; Z95.5 Presence of coronary angioplasty implant and graft; Z72.89 Other problems related to lifestyle; Z82.49 Family history of ischemic heart disease and other diseases of the circulatory system; Z23 Encounter for immunization
CPT/HCPCS: 36415; 70450; 71010; 80048; 81207; 82962; 85007; 85025; 85027; 85097; 85610; 85730; 87040; 88161; 88184; 88185; 88230; 88291; 88305; 88311; 88313; 90670; 90686; 93005; 93010; 96365; A9270-GY; G0364; J1200; J1650; J1956; J2250; J2543; J3010

== ENCOUNTER 2017-09-13 09:15 | Emergency (ER) | payer MEDICARE ==
[2017-09-13 09:32] VITALS: BP 156/81
--- NOTE | 2017-09-13 11:47 | Emergency Department Report ---
ED General Adult HPI - General Chief complaint: Extremity Injury, Lower Stated complaint: BILATERAL FOOT PAIN Time Seen by Provider: 09/13/17 11:01 Source: patient Mode of arrival: Ambulatory Limitations: No Limitations - History of Present Illness Initial comments: pt presents for medication refill was anjelica'd from [facility] on 09/10/2017 but did not get rx present to floor today to pickup rx advised to presents to ed for refill as originals are "gone" tp denies acute complaint at this time. - Related Data Previous Rx's Medication Instructions Recorded Last Taken Type AtorvaSTATin [Lipitor] 40 mg PO BID #30 tablet 09/13/17 Unknown Rx Carvedilol [Coreg] 25 mg PO BID #60 tablet 09/13/17 Unknown Rx Colchicine [Colcrys] 0.6 mg PO BID #60 tablet 09/13/17 Unknown Rx Tamsulosin [Flomax] 0.4 mg PO QDAY #30 capsule 09/13/17 Unknown Rx amLODIPine [Norvasc] 10 mg PO DAILY #30 tablet 09/13/17 Unknown Rx methOCARBAMOL [Robaxin TAB] 500 mg PO BID #60 tablet 09/13/17 Unknown Rx methylPREDNISolone [Medrol Dose 1 dose PO DAILY #1 pack 09/13/17 Unknown Rx Dk] Allergies Allergy/AdvReac Type Severity Reaction Status Date / Time chlorpromazine HCl Allergy Swelling Verified 04/30/17 09:27 [From Thorazine] haloperidol [From Haldol] Allergy Unknown Verified 09/04/17 16:37 lisinopril Allergy Unknown Verified 09/04/17 16:37 ED Review of Systems ROS: Stated complaint: BILATERAL FOOT PAIN Other details as noted in HPI Constitutional: denies: chills, fever Eyes: denies: eye pain, eye discharge, vision change ENT: denies: ear pain, throat pain Respiratory: denies: cough, shortness of breath, wheezing Cardiovascular: denies: chest pain, palpitations Endocrine: no symptoms reported Gastrointestinal: denies: abdominal pain, nausea, diarrhea Genitourinary: denies: urgency, dysuria Musculoskeletal: denies: back pain, joint swelling, arthralgia Skin: denies: rash, lesions Neurological: denies: headache, weakness, paresthesias Psychiatric: denies: anxiety, depression Hematological/Lymphatic: denies: easy bleeding, easy bruising ED Past Medical Hx - Past Medical History Hx Hypertension: Yes Hx Heart Attack/AMI: Yes Hx Congestive Heart Failure: No Hx Diabetes: No Hx Seizures: Yes Hx Psychiatric Treatment: Yes (depression) Hx Asthma: No Hx COPD: No Additional medical history: gout - Surgical History Hx Coronary Stent: Yes Additional Surgical History: multiple cardiac stents - Social History Smoking Status: Former Smoker - Medications Home Medications: Home Medications Medication Instructions Recorded Confirmed Last Taken Type AtorvaSTATin [Lipitor] 40 mg PO BID #30 tablet 09/13/17 Unknown Rx Carvedilol [Coreg] 25 mg PO BID #60 tablet 09/13/17 Unknown Rx Colchicine [Colcrys] 0.6 mg PO BID #60 tablet 09/13/17 Unknown Rx Tamsulosin [Flomax] 0.4 mg PO QDAY #30 capsule 09/13/17 Unknown Rx amLODIPine [Norvasc] 10 mg PO DAILY #30 tablet 09/13/17 Unknown Rx methOCARBAMOL [Robaxin TAB] 500 mg PO BID #60 tablet 09/13/17 Unknown Rx methylPREDNISolone [Medrol Dose 1 dose PO DAILY #1 pack 09/13/17 Unknown Rx Dk] ED Physical Exam - General Limitations: No Limitations General appearance: alert, in no apparent distress - Head Head exam: Present: atraumatic, normocephalic - Eye Eye exam: Present: normal appearance - ENT ENT exam: Present: mucous membranes moist - Neck Neck exam: Present: normal inspection - Respiratory Respiratory exam: Present: normal lung sounds bilaterally. Absent: respiratory distress - Cardiovascular Cardiovascular Exam: Present: regular rate, normal rhythm. Absent: systolic murmur, diastolic murmur, rubs, gallop - GI/Abdominal GI/Abdominal exam: Present: soft, normal bowel sounds - Rectal Rectal exam: Present: deferred - Extremities Exam Extremities exam: Present: normal inspection - Back Exam Back exam: Present: normal inspection - Neurological Exam Neurological exam: Present: alert, oriented X3 - Psychiatric Psychiatric exam: Present: normal affect, normal mood - Skin Skin exam: Present: warm, dry, intact, normal color. Absent: rash ED Course Vital Signs 09/13/17 09:30 Temperature 97.7 F Pulse Rate 82 Respiratory 16 Rate Blood Pressure 156/81 O2 Sat by Pulse 100 Oximetry ED Medical Decision Making - Medical Decision Making medication refill Critical care attestation.: If time is entered above; I have spent that time in minutes in the direct care of this critically ill patient, excluding procedure time. ED Disposition Clinical Impression: Medication refill Disposition: DC-01 TO HOME OR SELFCARE Is pt being admited?: No Does the pt Need Aspirin: No Condition: Good Prescriptions: amLODIPine [Norvasc] 10 mg PO DAILY #30 tablet AtorvaSTATin [Lipitor] 40 mg PO BID #30 tablet Carvedilol [Coreg] 25 mg PO BID #60 tablet Colchicine [Colcrys] 0.6 mg PO BID #60 tablet methOCARBAMOL [Robaxin TAB] 500 mg PO BID #60 tablet methylPREDNISolone [Medrol Dose Dk] 1 dose PO DAILY #1 pack Tamsulosin [Flomax] 0.4 mg PO QDAY #30 capsule Referrals: PRIMARY CAREMD [Primary Care Provider] - 3-5 Days SHEILA HALEY MD [Staff Physician] - 3-5 Days Forms: Work/School Release Form(ED) Time of Disposition: 11:47
== END 2017-09-13 11:56 | disposition home or self-care (01) ==
LOC: ED 09:15
DX: Z76.0 Encounter for issue of repeat prescription (principal); I10 Essential (primary) hypertension
CPT/HCPCS: 99282